=== PATIENT | female | born 1935 | race African-American/Black ===

== ENCOUNTER 2019-02-22 04:25 | Inpatient (IN) | payer MEDICARE, MEDICAID ==
[2019-02-22] VITALS (8 sets, daily range): BP systolic 137–192; BP diastolic 51–132
[~2019-02-22] VITALS: Ht 152.4 cm; Wt 83.0 kg
[2019-02-22] MEDS ORDERED: Acetaminophen 650 MG SUPP RECTAL ONE ×2 (04:30→04:44)
--- NOTE | 2019-02-22 04:36 | Emergency Room Report ---
History of Present Illness General Chief Complaint: Fever Source: Medical Record, EMS Present Illness HPI Disclaimer: Please note that this report is being documented using DRAGON technology. This can lead to erroneous entry secondary to incorrect interpretation by the dictating instrument. HPI: 83-year-old female with a history of dysphasia, nonverbal, diabetes, CHF, CKD presents for evaluation of hypoxia and shortness of breath. The patient presents from convalescent home, [facility], where she was reportedly staying for pneumonia. Unclear what antibiotic she was taking. According to documentation she was found hypoxic saturating 76% on room air and improved to 88% on nasal cannula. She was febrile with a temperature of 101.8. Patient is nonverbal and cannot provide any additional information. PMH: CKD, nonverbal, diabetes, CHF PSH: Unknown Allergies: Unknown Social Hx: Unknown Allergies: Coded Allergies: No Known Allergies (Unverified , 02/22/19) Nursing Documentation-PMH Hx Hypertension: Yes Hx Diabetes: Yes Hx Dialysis: No - CKD Review of Systems All Other Systems: negative except mentioned in HPI Physical Exam Vital Signs Date Time Temp Pulse Resp B/P (MAP) Pulse Ox O2 Delivery O2 Flow Rate FiO2 02/22/19 04:18 100.9 120 26 166/83 (110) 94 Room Air 2.0 General: Awake and alert, febrile HEENT: NC/AT. EOMI. Cardiovascular: Tachycardic. S1 and S2 normal. No murmur appreciated Resp: Tachypneic. Increased work of breathing. No cough, wheezing or crackles appreciated Abdomen: G-tube in place. No leakage. Abdomen is soft, nondistended. Nontender Skin: Intact. No abrasions, laceration or rash over the exposed skin MSK: Normal tone and bulk. Moving all extremities. No obvious deformity. No lower extremity edema Neuro: Awake and alert. Mentating appropriately. Procedures Critical Care Time Critical Care Time Total critical care time: Approximately 45 minutes Due to a high probability of clinically significant, life threatening deterioration, the patient required the highest level of preparedness to intervene emergently and I personally spent this critical care time directly and personally managing the patient. This critical care time included obtaining a history, examining the patient, pulse oximetry, ordering and reviewing studies , ordering treatments, evaluating response to treatment and updating management plan as needed, frequent reassessment and discussion with other providers as well as arranging for ultimate disposition. This critical to care time was performed to assess and manage the high probability of life-threatening deterioration that could result in multiorgan failure. This critical care time is separate from the separately billable procedures and treating other patients. Medical Decision Making ER Course 83-year-old female presents from her convalescent home where she was staying for pneumonia presents for evaluation of hypoxia and increased work of breathing. Differential includes was not limited to viral syndrome, pneumonia, influenza, pneumothorax, ACS, CHF. She is tachypneic and tachycardic with increased work of breathing. Will start BiPAP. Will start broad metabolic infectious work-up. Treat empirically with antibiotics and antipyretics. Gentle IV hydration. Saturating well on nasal cannula at this time. She is febrile. Will require admission. Laboratory Tests Test 02/22/19 04:20 02/22/19 05:00 White Blood Count 20.1 K/UL (4.8-10.8) H Red Blood Count 4.49 M/UL (4.20-5.40) Hemoglobin 14.5 G/DL (12.0-16.0) Hematocrit 44.6 % (37.0-47.0) Mean Corpuscular Volume 99 FL (80-99) Mean Corpuscular Hemoglobin 32.4 PG (27.0-31.0) H Mean Corpuscular Hemoglobin Concent 32.6 G/DL (32.0-36.0) Red Cell Distribution Width 13.9 % (11.6-14.8) Platelet Count 166 K/UL (150-450) Mean Platelet Volume 10.0 FL (6.5-10.1) Neutrophils (%) (Auto) % (45.0-75.0) Lymphocytes (%) (Auto) % (20.0-45.0) Monocytes (%) (Auto) % (1.0-10.0) Eosinophils (%) (Auto) % (0.0-3.0) Basophils (%) (Auto) % (0.0-2.0) Differential Total Cells Counted 100 Neutrophils % (Manual) 88 % (45-75) H Lymphocytes % (Manual) 6 % (20-45) L Monocytes % (Manual) 6 % (1-10) Eosinophils % (Manual) 0 % (0-3) Basophils % (Manual) 0 % (0-2) Band Neutrophils 0 % (0-8) Platelet Estimate Adequate Platelet Morphology Normal Sodium Level 135 MMOL/L (136-145) L Potassium Level 4.5 MMOL/L (3.5-5.1) Chloride Level 103 MMOL/L (98-107) Carbon Dioxide Level 28 MMOL/L (21-32) Anion Gap 4 mmol/L (5-15) L Blood Urea Nitrogen 29 mg/dL (7-18) H Creatinine 1.2 MG/DL (0.55-1.30) Estimate Glomerular Filtration Rate mL/min (>60) Glucose Level 178 MG/DL (74-106) H Lactic Acid Level 1.80 mmol/L (0.4-2.0) Calcium Level 10.3 MG/DL (8.5-10.1) H Total Bilirubin 2.0 MG/DL (0.2-1.0) H Direct Bilirubin 0.3 MG/DL (0.0-0.3) Aspartate Amino Transferase (AST) 42 U/L (15-37) H Alanine Aminotransferase (ALT) 38 U/L (12-78) Alkaline Phosphatase 140 U/L (46-116) H Troponin I 0.132 ng/mL (0.000-0.056) Pro-B-Type Natriuretic Peptide 742 pg/mL (0-125) H Total Protein 8.4 G/DL (6.4-8.2) H Albumin 2.7 G/DL (3.4-5.0) L Globulin 5.7 g/dL Albumin/Globulin Ratio 0.5 (1.0-2.7) L Arterial Blood pH 7.429 (7.350-7.450) Arterial Blood Partial Pressure CO2 41.8 mmHg (35.0-45.0) Arterial Blood Partial Pressure O2 63.2 mmHg (75.0-100.0) L Arterial Blood HCO3 27.1 mmol/L (22.0-26.0) H Arterial Blood Oxygen Saturation 92.5 % (95-100) L Arterial Blood Base Excess 2.5 (-2-2) H Melecio Test Positive Microbiology Date/Time Source Procedure Growth Status 02/22/19 05:00 Nasal Nares - Final Complete 02/22/19 05:00 Nasal Nares - Final Complete EKG Diagnostic Results EKG Time: 04:34 Rate: tachycardiac Other Impression Sinus tachycardia, left axis deviation. No ST segment changes. Normal intervals. Rhythm Strip Diag. Results Rhythm Strip Time: 04:34 EP Interpretation: yes Rate: 110s Rhythm: no PVC's, no ectopy Chest X-Ray Diagnostic Results Chest X-Ray Diagnostic Results : Chest X-Ray Ordered: Yes # of Views/Limited/Complete: 1 View Indication: Shortness of Breath Interpretation: no effusion, no pneumothorax, other - Atelectasis versus consolidation right lower lobe. Impression: Other - Atelectasis versus consolidation Electronically Signed by: Electronically signed by Dr. Wiliam Dean Reevaluation Time: 05:57 Last Vital Signs Date Time Temp Pulse Resp B/P (MAP) Pulse Ox O2 Delivery O2 Flow Rate FiO2 02/22/19 04:18 100.9 120 26 166/83 (110) 94 Room Air 2.0 Reevaluation Impression Patient tolerating BiPAP well. Heart rate improving. Saturating 100%. Respiratory effort improved. Labs show white count of 20,000 with a shift of 88% . Blood gas shows hypoxia with a PCO2 P OT PO2 of 63 and a saturation 92.5% chemistry shows an elevated BUN, elevated troponin 0.132, normal lactate, abnormal bilirubin and elevated BN peptide at 742. No obvious effusions or significant congestion on chest x-ray but there is questionable consolidation versus atelectasis. Patient was treated with Levaquin on arrival. Rectal Tylenol was given for fever. Flu swabs are negative. Will admit to stepdown unit. Disposition: ADMITTED INPATIENT Condition: Serious Wiliam Dean MD Feb 22, 2019 04:36
[2019-02-22 05:04] LABS: HEMATOCRIT 44.6 % (37.0-47.0); HEMOGLOBIN 14.5 G/DL (12.0-16.0); MEAN CORPUSCULAR VOLUME 99 FL (80-99); PLATELET COUNT 166 K/UL (150-450); RED BLOOD COUNT 4.49 M/UL (4.20-5.40); RED CELL DISTRIBUTION WIDTH 13.9 % (11.6-14.8); WHITE BLOOD COUNT 20.1 K/UL (4.8-10.8)
[2019-02-22 05:18] LABS: ANION GAP 4 mmol/L (5-15); BLOOD UREA NITROGEN 29 mg/dL (7-18); CALCIUM 10.3 MG/DL (8.5-10.1); CARBON DIOXIDE 28 MMOL/L (21-32); CHLORIDE 103 MMOL/L (98-107); CREATININE 1.2 MG/DL (0.55-1.30); POTASSIUM 4.5 MMOL/L (3.5-5.1); SODIUM 135 MMOL/L (136-145)
[2019-02-22] MEDS ORDERED: NORCO 5-325 TA1 EACH ORAL (05:26)
[2019-02-22] MEDS ORDERED: ELIQUIS5 MG PO (05:26)
[2019-02-22] MEDS ORDERED: SIMETHICON40 MG/0.1 GT (05:26)
[2019-02-22] MEDS ORDERED: FLEET ENEMA133 ML RECTAL (05:26)
[2019-02-22] MEDS ORDERED: DUONEB 0.5-3(2.53 ML HHN (05:26)
[2019-02-22] MEDS ORDERED: CATAPRES0.1 MG ORAL (05:26)
[2019-02-22] MEDS ORDERED: BISACODYL10 M1 RC (05:26)
[2019-02-22] MEDS ORDERED: 8 HOUR650 MG ORAL (05:26)
[2019-02-22 05:34] LABS: ALANINE AMINOTRANSFERASE 38 U/L (12-78); ALBUMIN 2.7 G/DL (3.4-5.0); ALBUMIN/GLOBULIN RATIO 0.5 (1.0-2.7); ALKALINE PHOSPHATASE 140 U/L (46-116); ASPARTATE AMINO TRANSFERASE 42 U/L (15-37)
[2019-02-22 05:37] LABS: BILIRUBIN,DIRECT 0.3 MG/DL (0.0-0.3)
[2019-02-22] MEDS ORDERED: Albuterol/Ipratropium 3ml neb ONE ×3 (05:38→05:48)
[2019-02-22] MEDS: Albuterol/Ipratropium 3ml neb HHN SCH ×3 (05:42→05:49)
[2019-02-22 06:19] LABS: APPEARANCE,URINE CLEAR; BILIRUBIN, URINE NEGATIVE (NEGATIVE); GLUCOSE, URINE (UA) NEGATIVE (NEGATIVE); KETONES,URINE NEGATIVE (NEGATIVE); LEUKOCYTE ESTERASE ,URINE NEGATIVE (NEGATIVE); NITRITE,URINE NEGATIVE (NEGATIVE); PH,URINE 5 (4.5-8.0); PROTEIN,URINE 3+ (NEGATIVE); UROBILINOGEN,URINE 1 MG/DL (0.0-1.0)
[2019-02-22 06:29] LABS: COLOR,URINE YELLOW
--- NOTE | 2019-02-22 06:50 | Diagnostic Imaging Report ---
Indication: Shortness of breath Technique: One view of the chest Comparison: none Findings: There is elevation of the left hemidiaphragm. There is bilateral interstitial disease and central bronchial wall thickening. Heart size is normal. No focal airspace consolidation. No definite effusions Impression: Acuity indeterminate bilateral interstitial disease and central bronchial wall thickening. Correlate with clinical findings
[2019-02-22] MEDS ORDERED: Nitroglycerin Subl 0.4mg tab SL PRN ×2 (10:00→21:00)
[2019-02-22] MEDS ORDERED: Morphine Sulfate 2mg/ml Inj(IV/IM USE ONLY) IVP PRN ×2 (10:00→21:00)
[2019-02-22] MEDS ORDERED: Albuterol/Ipratropium 3ml neb HHN PRN (10:00)
[2019-02-22] MEDS ORDERED: Miralax 17gm pkt ORAL PRN ×2 (10:00→21:00)
--- NOTE | 2019-02-22 10:11 | History and Physical ---
History of Present Illness General Date patient seen: Feb 22, 2019 Reason for Hospitalization: Fever Present Illness HPI 83-year-old female with a hx of diabetes, CHF, dementia, Gtube, bed bound presented for evaluation of hypoxia and shortness of breath. She was found hypoxic saturating 76% on room air and improved to 88% on nasal cannula. She was febrile with a temperature of 101.8. Patient is nonverbal and cannot provide any additional information. Her BP was high around 160, she was put on BIPAP and transferred to ICU. Allergies: Coded Allergies: No Known Allergies (Unverified , 02/22/19) Medication History Scheduled Acetaminophen (8 Hour), 650 MG ORAL Q8H, (Reported) Clonidine Hcl* (Catapres*), 0.1 MG ORAL EVERY 6 HOURS, (Reported) Na Phos,M-B/Na Phos,Di-Ba* (Fleet Enema*), 133 ML RECTAL DAILY, (Reported) Scheduled PRN Hydrocodone Bit/Acetaminophen 5-325* ([place] 5-325*), 1 TAB ORAL Q4H PRN for For Pain, (Reported) Miscellaneous Medications Apixaban (Eliquis), 5 MG PO, (Reported) Bisacodyl (Bisacodyl), 10 MG RC, (Reported) Ipratropium/Albuterol Sulfate (DuoNeb 0.5-3(2.5)mg/3ml), 3 ML HHN, (Reported) Simethicone (Gas Relief), 200 MG GT, (Reported) Patient History Healthcare decision maker Resuscitation status Advanced Directive on File Past Medical/Surgical History Past Medical/Surgical History: (1) CAD (coronary artery disease) (2) Dementia with behavioral disturbance (3) Parkinson disease (4) Diabetes mellitus (5) Feeding by G-tube Review of Systems All Other Systems: negative except mentioned in HPI Physical Exam General Appearance: WD/WN, no apparent distress Lines, tubes and drains: peripheral HEENT: normocephalic, atraumatic Neck: non-tender, normal alignment Respiratory/Chest: chest wall non-tender, lungs clear Breasts: no masses Cardiovascular/Chest: normal peripheral pulses Abdomen: normal bowel sounds, non tender Genitourinary/Rectal: normal genital exam, normal rectal exam Extremities: normal range of motion, non-tender Skin Exam: normal pigmentation Neurologic: box finisher II-XII grossly normal Lymphatic: anterior cervical Last 24 Hour Vital Signs Date Time Temp Pulse Resp B/P (MAP) Pulse Ox O2 Delivery O2 Flow Rate FiO2 02/22/19 07:55 101.0 106 29 167/67 97 Bi-pap 2.0 40 02/22/19 07:45 101.0 106 29 167/67 97 Bi-pap 40 02/22/19 06:30 102.4 108 25 167/67 100 2.0 40 02/22/19 05:50 101 25 100 Bi-Pap 40 103 27 100 02/22/19 05:45 103 26 100 Bi-Pap 40 102 26 100 02/22/19 05:44 102.4 02/22/19 05:42 115 32 99 Bi-Pap 40 111 37 97 02/22/19 05:08 115 38 98 Facial 30 02/22/19 05:00 102.4 125 20 180/132 99 Bi-pap 2.0 40 02/22/19 04:45 120 26 Room Air 2.0 02/22/19 04:18 100.9 120 26 166/83 (110) 94 Room Air 2.0 Laboratory Tests Test 02/22/19 04:20 02/22/19 05:00 02/22/19 05:50 02/22/19 06:30 White Blood Count 20.1 K/UL (4.8-10.8) H Red Blood Count 4.49 M/UL (4.20-5.40) Hemoglobin 14.5 G/DL (12.0-16.0) Hematocrit 44.6 % (37.0-47.0) Mean Corpuscular Volume 99 FL (80-99) Mean Corpuscular Hemoglobin 32.4 PG (27.0-31.0) H Mean Corpuscular Hemoglobin Concent 32.6 G/DL (32.0-36.0) Red Cell Distribution Width 13.9 % (11.6-14.8) Platelet Count 166 K/UL (150-450) Mean Platelet Volume 10.0 FL (6.5-10.1) Neutrophils (%) (Auto) % (45.0-75.0) Lymphocytes (%) (Auto) % (20.0-45.0) Monocytes (%) (Auto) % (1.0-10.0) Eosinophils (%) (Auto) % (0.0-3.0) Basophils (%) (Auto) % (0.0-2.0) Differential Total Cells Counted 100 Neutrophils % (Manual) 88 % (45-75) H Lymphocytes % (Manual) 6 % (20-45) L Monocytes % (Manual) 6 % (1-10) Eosinophils % (Manual) 0 % (0-3) Basophils % (Manual) 0 % (0-2) Band Neutrophils 0 % (0-8) Platelet Estimate Adequate Platelet Morphology Normal Sodium Level 135 MMOL/L (136-145) L Potassium Level 4.5 MMOL/L (3.5-5.1) Chloride Level 103 MMOL/L (98-107) Carbon Dioxide Level 28 MMOL/L (21-32) Anion Gap 4 mmol/L (5-15) L Blood Urea Nitrogen 29 mg/dL (7-18) H Creatinine 1.2 MG/DL (0.55-1.30) Estimat Glomerular Filtration Rate mL/min (>60) Glucose Level 178 MG/DL (74-106) H Lactic Acid Level 1.80 mmol/L (0.4-2.0) Calcium Level 10.3 MG/DL (8.5-10.1) H Total Bilirubin 2.0 MG/DL (0.2-1.0) H Direct Bilirubin 0.3 MG/DL (0.0-0.3) Aspartate Amino Transf (AST/SGOT) 42 U/L (15-37) H Alanine Aminotransferase (ALT/SGPT) 38 U/L (12-78) Alkaline Phosphatase 140 U/L (46-116) H Troponin I 0.132 ng/mL (0.000-0.056) 0.168 ng/mL (0.000-0.056) Pro-B-Type Natriuretic Peptide 742 pg/mL (0-125) H Total Protein 8.4 G/DL (6.4-8.2) H Albumin 2.7 G/DL (3.4-5.0) L Globulin 5.7 g/dL Albumin/Globulin Ratio 0.5 (1.0-2.7) L Arterial Blood pH 7.429 (7.350-7.450) Arterial Blood Partial Pressure CO2 41.8 mmHg (35.0-45.0) Arterial Blood Partial Pressure O2 63.2 mmHg (75.0-100.0) L Arterial Blood HCO3 27.1 mmol/L (22.0-26.0) H Arterial Blood Oxygen Saturation 92.5 % (95-100) L Arterial Blood Base Excess 2.5 (-2-2) H Melecio Test Positive Urine Color Yellow Urine Appearance Clear Urine pH 5 (4.5-8.0) Urine Specific [place] 1.020 (1.005-1.035) Urine Protein 3+ (NEGATIVE) H Urine Glucose (UA) Negative (NEGATIVE) Urine Ketones Negative (NEGATIVE) Urine Blood 4+ (NEGATIVE) H Urine Nitrite Negative (NEGATIVE) Urine Bilirubin Negative (NEGATIVE) Urine Urobilinogen 1 MG/DL (0.0-1.0) H Urine Leukocyte Esterase Negative (NEGATIVE) Urine RBC 40-60 /HPF (0 - 2) H Urine WBC 2-4 /HPF (0 - 2) Urine Squamous Epithelial Cells Few /LPF (NONE/OCC) Urine Bacteria Few /HPF (NONE) Microbiology Date/Time Source Procedure Growth Status 02/22/19 05:00 Nasal Nares - Final Complete 02/22/19 05:00 Nasal Nares - Final Complete Height (Feet): 5 Height (Inches): 3.00 Weight (Pounds): 150 Medications Current Medications Medications (Trade) Dose Ordered Sig/Steve Route PRN Reason Start Time Stop Time Status Last Admin Dose Admin Acetaminophen (Tylenol) 650 mg Q4H PRN ORAL fever 02/22/19 10:00 03/24/19 09:59 UNV Albuterol/ Ipratropium (Albuterol/ Ipratropium) 3 ml EVERY 4 HOURS PRN HHN Shortness of Breath 02/22/19 10:00 02/27/19 09:59 UNV Albuterol/ Ipratropium (Albuterol/ Ipratropium) 3 ml Q15M HHN 02/22/19 05:00 02/27/19 04:59 02/22/19 05:49 Cefepime HCl 2 gm/ Dextrose 110 ml @ 220 mls/hr EVERY 12 HOURS IV 02/22/19 21:00 03/01/19 20:59 UNV Heparin Sodium (Porcine) (Heparin 5000 units/ml) 5,000 units EVERY 12 HOURS SUBQ 02/22/19 21:00 03/24/19 20:59 UNV Morphine Sulfate (Morphine Sulfate) 2 mg EVERY 4 HOURS PRN IVP Moderate Pain (Pain Scale 4-6) 02/22/19 10:00 03/01/19 09:59 UNV Nitroglycerin (Ntg) 0.4 mg Every 5 Minutes PRN SL Prn Chest Pain 02/22/19 10:00 03/24/19 09:59 UNV Ondansetron HCl (Zofran) 4 mg Q6H PRN IVP Nausea & Vomiting 02/22/19 10:00 03/24/19 09:59 UNV Polyethylene Glycol (Miralax) 17 gm DAILYPRN PRN ORAL Constipation 02/22/19 10:00 03/24/19 09:59 UNV Temazepam (Restoril) 15 mg HSPRN PRN ORAL Insomnia 02/22/19 10:00 03/01/19 09:59 UNV Vancomycin HCl 1 gm/Dextrose 275 ml @ 183.3 mls/ hr Q24H IV 02/23/19 00:30 02/28/19 00:29 UNV Assessment/Plan Problem List: (1) NSTEMI (non-ST elevated myocardial infarction) ICD Codes: I21.4 - Non-ST elevation (NSTEMI) myocardial infarction SNOMED: 90933368 (2) Nosocomial pneumonia ICD Codes: J18.9 - Pneumonia, unspecified organism; Y95 - Nosocomial condition SNOMED: 675037806 (3) Sepsis ICD Codes: A41.9 - Sepsis, unspecified organism SNOMED: 93679142 (4) Fever ICD Codes: R50.9 - Fever, unspecified SNOMED: 346292476 (5) Hypoxia ICD Codes: R09.02 - Hypoxemia SNOMED: 478944198 (6) Dementia with behavioral disturbance ICD Codes: F03.91 - Unspecified dementia with behavioral disturbance SNOMED: 0610727488905 (7) Feeding by G-tube ICD Codes: Z93.1 - Gastrostomy status SNOMED: 141744199, 305075570, 293988720 (8) Diabetes mellitus ICD Codes: E11.9 - Type 2 diabetes mellitus without complications SNOMED: 41373433 (9) CAD (coronary artery disease) ICD Codes: I25.10 - Atherosclerotic heart disease of [place] coronary artery without angina pectoris SNOMED: 12825519 (10) Parkinson disease ICD Codes: G20 - Parkinson's disease SNOMED: 33475810 Assessment/Plan: check sputum iv abx titrate fio2 to sat of 92% echo venous doppler of [place] ID evaluation aspiration precaution check Troponin in am dvt prophylaxis Davion Cuello MD Feb 22, 2019 10:11
[2019-02-22] MEDS ORDERED: Acetaminophen 650mg/20.3ml NG PRN (12:00)
[2019-02-22] MEDS: Vancomycin 1 GM in D5W 275 ML IVPB SCH (12:14)
[2019-02-22] MEDS: NovoLOG Insulin Flexpen SUBQ SCH ×3 (14:40→20:50)
[2019-02-22] MEDS ORDERED: Labetalol 5mg/ml 20ml vial IV PRN (15:45)
--- NOTE | 2019-02-22 19:04 | Consultation ---
Consult Note Assessment/Plan Cardiology for Dr. Majano Full noted dictated #[id number] Irma Moody MD Feb 22, 2019 19:04
[2019-02-22] MEDS: Cefepime HCl 1 GM in D5W 110 ML IVPB SCH (20:50)
[2019-02-22] MEDS: Eliquis 5mg tablet ORAL SCH (20:50)
[2019-02-22] MEDS: Acetaminophen 650mg/20.3ml NG PRN (20:58)
[2019-02-22] MEDS ORDERED: Heparin 5000 units/ml inj SUBQ SCH (21:00)
[2019-02-23] VITALS (23 sets, daily range): BP systolic 116–174; BP diastolic 46–95
[2019-02-23] MEDS: Acetaminophen 650mg/20.3ml NG PRN (04:25)
[2019-02-23 05:47] LABS: HEMATOCRIT 35.2 % (37.0-47.0); HEMOGLOBIN 11.9 G/DL (12.0-16.0); MEAN CORPUSCULAR VOLUME 99 FL (80-99); PLATELET COUNT 146 K/UL (150-450); RED BLOOD COUNT 3.56 M/UL (4.20-5.40); RED CELL DISTRIBUTION WIDTH 13.7 % (11.6-14.8); WHITE BLOOD COUNT 11.3 K/UL (4.8-10.8)
[2019-02-23] MEDS: NovoLOG Insulin Flexpen SUBQ SCH ×3 (05:59→18:06)
[2019-02-23 06:23] LABS: ALANINE AMINOTRANSFERASE 34 U/L (12-78); ALBUMIN 2.3 G/DL (3.4-5.0); ALBUMIN/GLOBULIN RATIO 0.5 (1.0-2.7); ALKALINE PHOSPHATASE 120 U/L (46-116); ANION GAP 7 mmol/L (5-15); ASPARTATE AMINO TRANSFERASE 38 U/L (15-37); BILIRUBIN,TOTAL 1.4 MG/DL (0.2-1.0); BLOOD UREA NITROGEN 26 mg/dL (7-18); CALCIUM 9.3 MG/DL (8.5-10.1); CARBON DIOXIDE 24 MMOL/L (21-32); CHLORIDE 107 MMOL/L (98-107); POTASSIUM 3.5 MMOL/L (3.5-5.1); SODIUM 138 MMOL/L (136-145)
[2019-02-23 06:25] LABS: BILIRUBIN,DIRECT 0.4 MG/DL (0.0-0.3)
--- NOTE | 2019-02-23 08:47 | Pulmonolgy Critical Care Note ---
Critical Care - Asmt/Plan Problems: (1) Acute respiratory failure (2) Nosocomial pneumonia (3) Sepsis (4) Parkinson disease (5) Feeding by G-tube (6) Diabetes mellitus (7) NSTEMI (non-ST elevated myocardial infarction) (8) Dementia with behavioral disturbance (9) CAD (coronary artery disease) Respiratory: monitor respiratory rate, adjust FIO2, CXR, other - taper off BIPAP Cardiac: continue to monitor HR/BP Renal: F/U I&O, check electrolytes Infectious Disease: check cultures, continue antibiotics Gastrointestinal: continue feedings/current rate Endocrine: monitor blood sugar Hematologic: monitor H/H Neurologic: PRN Ativan Notes Reviewed: makeup sales advisor, renal Discussed with: consultants, case manager specialistcontinuous improvement manager - Objective Last 24 Hour Vital Signs Date Time Temp Pulse Resp B/P (MAP) Pulse Ox O2 Delivery O2 Flow Rate FiO2 02/23/19 07:32 100 Bi-Pap 35 02/23/19 07:32 91 24 100 Full Face 35 02/23/19 07:00 85 24 166/64 (98) 100 02/23/19 06:00 82 32 131/56 (81) 99 02/23/19 05:08 86 24 98 Full Face 35 02/23/19 05:00 99 24 116/48 (70) 98 02/23/19 04:55 99.9 02/23/19 04:00 101.6 96 24 163/80 (107) 99 02/23/19 04:00 Bi-pap 02/23/19 04:00 35 02/23/19 03:45 98 36 100 Full Face 35 02/23/19 03:07 112 02/23/19 03:00 116 40 172/69 (103) 100 02/23/19 02:13 174/67 02/23/19 02:00 99 34 174/67 (102) 100 02/23/19 01:05 89 37 100 Full Face 35 02/23/19 01:00 97 30 155/86 (109) 99 02/23/19 00:00 98.9 95 24 150/66 (94) 100 02/23/19 00:00 Bi-pap 02/22/19 23:53 95 32 98 Full Face 35 02/22/19 23:31 96 02/22/19 23:00 96 27 172/64 (100) 100 02/22/19 22:00 90 20 137/51 (79) 100 02/22/19 21:00 99 27 192/61 (104) 99 02/22/19 20:59 177/77 02/22/19 20:40 106 38 100 Full Face 35 02/22/19 20:00 40 02/22/19 20:00 Bi-pap 02/22/19 20:00 100.6 104 33 177/77 (110) 99 02/22/19 19:27 102 02/22/19 19:00 102 37 100 Full Face 35 02/22/19 19:00 103 33 152/63 (92) 100 02/22/19 19:00 100 Bi-Pap 35 02/22/19 17:21 95 27 100 Full Face 40 02/22/19 16:15 92 185/64 02/22/19 16:00 102 02/22/19 16:00 Bi-pap 02/22/19 16:00 40 02/22/19 14:59 107 35 100 Facial 40 02/22/19 13:18 81 26 100 Facial 40 02/22/19 13:00 179/72 02/22/19 12:00 40 02/22/19 12:00 Bi-pap 02/22/19 12:00 103 02/22/19 09:05 Simple Mask 12.0 Status: obtunded Condition: critical Lungs: rales, rhonchi Heart: HR/BP stable Abdomen: soft, non-tender Extremities: no C/C/E Micro: Microbiology Date/Time Source Procedure Growth Status 02/22/19 04:35 Blood Blood Culture - Preliminary NO GROWTH AFTER 24 HOURS Resulted 02/22/19 04:20 Blood Blood Culture - Preliminary NO GROWTH AFTER 24 HOURS Resulted 02/22/19 05:00 Nasal Nares - Final Complete 02/22/19 05:00 Nasal Nares - Final Complete Accucheck: 107 Critical Care - Subjective ROS Limited/Unobtainable: Yes Interval Events: still off BIPAP FI02: 35 Vent Support Mode: BiLevel Sputum Amount: None PEEP: 5.0 Tube Feeding Amount: 30 I&O: Intake and Output 02/22/19 02/23/19 19:00 07:00 Intake Total 961.6 ml 1078.75 ml Output Total 320 ml 470 ml Balance 641.6 ml 608.75 ml Intake IV Total 891.6 ml 778.75 ml Tube Feeding 70 ml 300 ml Output Urine Total 320 ml 470 ml Labs: Laboratory Tests Test 02/23/19 05:06 White Blood Count 11.3 K/UL (4.8-10.8) H Red Blood Count 3.56 M/UL (4.20-5.40) L Hemoglobin 11.9 G/DL (12.0-16.0) L Hematocrit 35.2 % (37.0-47.0) L Mean Corpuscular Volume 99 FL (80-99) Mean Corpuscular Hemoglobin 33.5 PG (27.0-31.0) H Mean Corpuscular Hemoglobin Concent 33.9 G/DL (32.0-36.0) Red Cell Distribution Width 13.7 % (11.6-14.8) Platelet Count 146 K/UL (150-450) L Mean Platelet Volume 9.9 FL (6.5-10.1) Neutrophils (%) (Auto) % (45.0-75.0) Lymphocytes (%) (Auto) % (20.0-45.0) Monocytes (%) (Auto) % (1.0-10.0) Eosinophils (%) (Auto) % (0.0-3.0) Basophils (%) (Auto) % (0.0-2.0) Neutrophils % (Manual) Pending Lymphocytes % (Manual) Pending Platelet Estimate Pending Platelet Morphology Pending Sodium Level 138 MMOL/L (136-145) Potassium Level 3.5 MMOL/L (3.5-5.1) Chloride Level 107 MMOL/L (98-107) Carbon Dioxide Level 24 MMOL/L (21-32) Anion Gap 7 mmol/L (5-15) Blood Urea Nitrogen 26 mg/dL (7-18) H Creatinine 1.0 MG/DL (0.55-1.30) Estimat Glomerular Filtration Rate mL/min (>60) Glucose Level 121 MG/DL (74-106) H Calcium Level 9.3 MG/DL (8.5-10.1) Total Bilirubin 1.4 MG/DL (0.2-1.0) H Direct Bilirubin 0.4 MG/DL (0.0-0.3) H Aspartate Amino Transf (AST/SGOT) 38 U/L (15-37) H Alanine Aminotransferase (ALT/SGPT) 34 U/L (12-78) Alkaline Phosphatase 120 U/L (46-116) H Troponin I 0.172 ng/mL (0.000-0.056) Total Protein 7.1 G/DL (6.4-8.2) Albumin 2.3 G/DL (3.4-5.0) L Globulin 4.8 g/dL Albumin/Globulin Ratio 0.5 (1.0-2.7) L Davion Cuello MD Feb 23, 2019 08:47
[2019-02-23] MEDS ORDERED: Pantoprazole Inj IVP SCH (09:00)
[2019-02-23] MEDS: Cefepime HCl 1 GM in D5W 110 ML IVPB SCH ×2 (09:34→20:13)
[2019-02-23] MEDS: Eliquis 5mg tablet ORAL SCH ×2 (09:35→20:13)
[2019-02-23] MEDS: Pantoprazole Inj IVP SCH (10:21)
[2019-02-23 15:00] LABS: APPEARANCE,URINE CLEAR; BILIRUBIN, URINE NEGATIVE (NEGATIVE); GLUCOSE, URINE (UA) NEGATIVE (NEGATIVE); KETONES,URINE 1+ (NEGATIVE); LEUKOCYTE ESTERASE ,URINE NEGATIVE (NEGATIVE); NITRITE,URINE NEGATIVE (NEGATIVE); PH,URINE 5 (4.5-8.0); PROTEIN,URINE 3+ (NEGATIVE); UROBILINOGEN,URINE 1 MG/DL (0.0-1.0)
--- NOTE | 2019-02-23 15:02 | Cardiology Progress Note ---
Assessment/Plan Assessment/Plan respiratory failure, off Bipap, on simple o2 mask now ans saturation 100%, her respirations mildly labored she is covered with abx and her WBC is much better today HTN improved, on oral abx through g -tube, noted echocardiogram, I doubt that her respiratory distress is due to pulmonary edema most likely pneumonia, Subjective Subjective the patient is resting in bed, she is very lethargic, upon arousal, lifts her head but does not follow instructions. Objective Last 24 Hour Vital Signs Date Time Temp Pulse Resp B/P (MAP) Pulse Ox O2 Delivery O2 Flow Rate FiO2 02/23/19 14:00 87 26 157/76 (103) 100 02/23/19 13:00 81 19 145/61 (89) 100 02/23/19 12:00 12.0 50 02/23/19 12:00 98.3 96 29 154/81 (105) 100 02/23/19 12:00 Bi-pap 02/23/19 10:00 103 30 149/46 (80) 100 02/23/19 10:00 12.0 50 02/23/19 09:35 90 132/62 02/23/19 09:00 102 31 157/65 (95) 100 02/23/19 08:50 90 25 100 Full Face 35 02/23/19 08:00 Bi-pap 02/23/19 08:00 35 02/23/19 08:00 98.9 93 26 132/62 (85) 100 02/23/19 07:32 100 Bi-Pap 35 02/23/19 07:32 91 24 100 Full Face 35 02/23/19 07:00 85 24 166/64 (98) 100 02/23/19 06:00 82 32 131/56 (81) 99 02/23/19 05:08 86 24 98 Full Face 35 02/23/19 05:00 99 24 116/48 (70) 98 02/23/19 04:55 99.9 02/23/19 04:00 101.6 96 24 163/80 (107) 99 02/23/19 04:00 Bi-pap 02/23/19 04:00 35 02/23/19 03:45 98 36 100 Full Face 35 02/23/19 03:07 112 02/23/19 03:00 116 40 172/69 (103) 100 02/23/19 02:13 174/67 02/23/19 02:00 99 34 174/67 (102) 100 02/23/19 01:05 89 37 100 Full Face 35 02/23/19 01:00 97 30 155/86 (109) 99 02/23/19 00:00 98.9 95 24 150/66 (94) 100 02/23/19 00:00 Bi-pap 02/22/19 23:53 95 32 98 Full Face 35 02/22/19 23:31 96 02/22/19 23:00 96 27 172/64 (100) 100 02/22/19 22:00 90 20 137/51 (79) 100 02/22/19 21:00 99 27 192/61 (104) 99 02/22/19 20:59 177/77 02/22/19 20:40 106 38 100 Full Face 35 02/22/19 20:00 40 02/22/19 20:00 Bi-pap 02/22/19 20:00 100.6 104 33 177/77 (110) 99 02/22/19 19:27 102 02/22/19 19:00 102 37 100 Full Face 35 02/22/19 19:00 103 33 152/63 (92) 100 02/22/19 19:00 100 Bi-Pap 35 02/22/19 17:21 95 27 100 Full Face 40 02/22/19 16:15 92 185/64 02/22/19 16:00 102 02/22/19 16:00 Bi-pap 02/22/19 16:00 40 02/22/19 14:59 107 35 100 Facial 40 General Appearance: moderate distress, lethargic EENT: PERRL/EOMI Neck: no JVD Rhythm: NSR - ` Cardiovascular: tachycardia Respiratory/Chest: rhonchi - bilaterally, expiratory wheezing - also crackles posterioirly Abdomen: soft, other - g tube Extremities: no swelling, normal capillary refill Pulses: decreased: DP (L) Neurologic: unresponsiveness Intake and Output 02/22/19 02/23/19 19:00 07:00 Intake Total 961.6 ml 1078.75 ml Output Total 320 ml 470 ml Balance 641.6 ml 608.75 ml IV Total 891.6 ml 778.75 ml Tube Feeding 70 ml 300 ml Output Urine Total 320 ml 470 ml Laboratory Tests Test 02/23/19 05:06 White Blood Count 11.3 K/UL (4.8-10.8) H Red Blood Count 3.56 M/UL (4.20-5.40) L Hemoglobin 11.9 G/DL (12.0-16.0) L Hematocrit 35.2 % (37.0-47.0) L Mean Corpuscular Volume 99 FL (80-99) Mean Corpuscular Hemoglobin 33.5 PG (27.0-31.0) H Mean Corpuscular Hemoglobin Concent 33.9 G/DL (32.0-36.0) Red Cell Distribution Width 13.7 % (11.6-14.8) Platelet Count 146 K/UL (150-450) L Mean Platelet Volume 9.9 FL (6.5-10.1) Neutrophils (%) (Auto) % (45.0-75.0) Lymphocytes (%) (Auto) % (20.0-45.0) Monocytes (%) (Auto) % (1.0-10.0) Eosinophils (%) (Auto) % (0.0-3.0) Basophils (%) (Auto) % (0.0-2.0) Differential Total Cells Counted 100 Neutrophils % (Manual) 86 % (45-75) H Lymphocytes % (Manual) 6 % (20-45) L Monocytes % (Manual) 7 % (1-10) Eosinophils % (Manual) 1 % (0-3) Basophils % (Manual) 0 % (0-2) Band Neutrophils 0 % (0-8) Platelet Estimate Decreased L Platelet Morphology Normal Red Blood Cell Morphology Normal Sodium Level 138 MMOL/L (136-145) Potassium Level 3.5 MMOL/L (3.5-5.1) Chloride Level 107 MMOL/L (98-107) Carbon Dioxide Level 24 MMOL/L (21-32) Anion Gap 7 mmol/L (5-15) Blood Urea Nitrogen 26 mg/dL (7-18) H Creatinine 1.0 MG/DL (0.55-1.30) Estimat Glomerular Filtration Rate mL/min (>60) Glucose Level 121 MG/DL (74-106) H Calcium Level 9.3 MG/DL (8.5-10.1) Total Bilirubin 1.4 MG/DL (0.2-1.0) H Direct Bilirubin 0.4 MG/DL (0.0-0.3) H Aspartate Amino Transf (AST/SGOT) 38 U/L (15-37) H Alanine Aminotransferase (ALT/SGPT) 34 U/L (12-78) Alkaline Phosphatase 120 U/L (46-116) H Troponin I 0.172 ng/mL (0.000-0.056) Total Protein 7.1 G/DL (6.4-8.2) Albumin 2.3 G/DL (3.4-5.0) L Globulin 4.8 g/dL Albumin/Globulin Ratio 0.5 (1.0-2.7) L Microbiology Date/Time Source Procedure Growth Status 02/22/19 04:35 Blood Blood Culture - Preliminary NO GROWTH AFTER 24 HOURS Resulted 02/22/19 04:20 Blood Blood Culture - Preliminary NO GROWTH AFTER 24 HOURS Resulted 02/22/19 05:00 Nasal Nares - Final Complete 02/22/19 05:00 Nasal Nares - Final Complete Annie Reardon MD Feb 23, 2019 15:02
--- NOTE | 2019-02-23 15:06 | Cardiology Progress Note ---
Assessment/Plan Assessment/Plan respiratory failure, off Bipap, on simple o2 mask now ans saturation 100%, her respirations mildly labored she is covered with abx and her WBC is much better today HTN improved, on oral abx through g -tube, noted echocardiogram, I doubt that her respiratory distress is due to pulmonary edema most likely pneumonia, Subjective Subjective ICU level of care one hour Objective Last 24 Hour Vital Signs Date Time Temp Pulse Resp B/P (MAP) Pulse Ox O2 Delivery O2 Flow Rate FiO2 02/23/19 14:00 87 26 157/76 (103) 100 02/23/19 13:00 81 19 145/61 (89) 100 02/23/19 12:00 12.0 50 02/23/19 12:00 98.3 96 29 154/81 (105) 100 02/23/19 12:00 Bi-pap 02/23/19 10:00 103 30 149/46 (80) 100 02/23/19 10:00 12.0 50 02/23/19 09:35 90 132/62 02/23/19 09:00 102 31 157/65 (95) 100 02/23/19 08:50 90 25 100 Full Face 35 02/23/19 08:00 Bi-pap 02/23/19 08:00 35 02/23/19 08:00 98.9 93 26 132/62 (85) 100 02/23/19 07:32 100 Bi-Pap 35 02/23/19 07:32 91 24 100 Full Face 35 02/23/19 07:00 85 24 166/64 (98) 100 02/23/19 06:00 82 32 131/56 (81) 99 02/23/19 05:08 86 24 98 Full Face 35 02/23/19 05:00 99 24 116/48 (70) 98 02/23/19 04:55 99.9 02/23/19 04:00 101.6 96 24 163/80 (107) 99 02/23/19 04:00 Bi-pap 02/23/19 04:00 35 02/23/19 03:45 98 36 100 Full Face 35 02/23/19 03:07 112 02/23/19 03:00 116 40 172/69 (103) 100 02/23/19 02:13 174/67 02/23/19 02:00 99 34 174/67 (102) 100 02/23/19 01:05 89 37 100 Full Face 35 02/23/19 01:00 97 30 155/86 (109) 99 02/23/19 00:00 98.9 95 24 150/66 (94) 100 02/23/19 00:00 Bi-pap 02/22/19 23:53 95 32 98 Full Face 35 02/22/19 23:31 96 02/22/19 23:00 96 27 172/64 (100) 100 02/22/19 22:00 90 20 137/51 (79) 100 02/22/19 21:00 99 27 192/61 (104) 99 02/22/19 20:59 177/77 02/22/19 20:40 106 38 100 Full Face 35 02/22/19 20:00 40 02/22/19 20:00 Bi-pap 02/22/19 20:00 100.6 104 33 177/77 (110) 99 02/22/19 19:27 102 02/22/19 19:00 102 37 100 Full Face 35 02/22/19 19:00 103 33 152/63 (92) 100 02/22/19 19:00 100 Bi-Pap 35 02/22/19 17:21 95 27 100 Full Face 40 02/22/19 16:15 92 185/64 02/22/19 16:00 102 02/22/19 16:00 Bi-pap 02/22/19 16:00 40 Intake and Output 02/22/19 02/23/19 19:00 07:00 Intake Total 961.6 ml 1078.75 ml Output Total 320 ml 470 ml Balance 641.6 ml 608.75 ml IV Total 891.6 ml 778.75 ml Tube Feeding 70 ml 300 ml Output Urine Total 320 ml 470 ml Laboratory Tests Test 02/23/19 05:06 02/23/19 14:30 White Blood Count 11.3 K/UL (4.8-10.8) H Red Blood Count 3.56 M/UL (4.20-5.40) L Hemoglobin 11.9 G/DL (12.0-16.0) L Hematocrit 35.2 % (37.0-47.0) L Mean Corpuscular Volume 99 FL (80-99) Mean Corpuscular Hemoglobin 33.5 PG (27.0-31.0) H Mean Corpuscular Hemoglobin Concent 33.9 G/DL (32.0-36.0) Red Cell Distribution Width 13.7 % (11.6-14.8) Platelet Count 146 K/UL (150-450) L Mean Platelet Volume 9.9 FL (6.5-10.1) Neutrophils (%) (Auto) % (45.0-75.0) Lymphocytes (%) (Auto) % (20.0-45.0) Monocytes (%) (Auto) % (1.0-10.0) Eosinophils (%) (Auto) % (0.0-3.0) Basophils (%) (Auto) % (0.0-2.0) Differential Total Cells Counted 100 Neutrophils % (Manual) 86 % (45-75) H Lymphocytes % (Manual) 6 % (20-45) L Monocytes % (Manual) 7 % (1-10) Eosinophils % (Manual) 1 % (0-3) Basophils % (Manual) 0 % (0-2) Band Neutrophils 0 % (0-8) Platelet Estimate Decreased L Platelet Morphology Normal Red Blood Cell Morphology Normal Sodium Level 138 MMOL/L (136-145) Potassium Level 3.5 MMOL/L (3.5-5.1) Chloride Level 107 MMOL/L (98-107) Carbon Dioxide Level 24 MMOL/L (21-32) Anion Gap 7 mmol/L (5-15) Blood Urea Nitrogen 26 mg/dL (7-18) H Creatinine 1.0 MG/DL (0.55-1.30) Estimat Glomerular Filtration Rate mL/min (>60) Glucose Level 121 MG/DL (74-106) H Calcium Level 9.3 MG/DL (8.5-10.1) Total Bilirubin 1.4 MG/DL (0.2-1.0) H Direct Bilirubin 0.4 MG/DL (0.0-0.3) H Aspartate Amino Transf (AST/SGOT) 38 U/L (15-37) H Alanine Aminotransferase (ALT/SGPT) 34 U/L (12-78) Alkaline Phosphatase 120 U/L (46-116) H Troponin I 0.172 ng/mL (0.000-0.056) Total Protein 7.1 G/DL (6.4-8.2) Albumin 2.3 G/DL (3.4-5.0) L Globulin 4.8 g/dL Albumin/Globulin Ratio 0.5 (1.0-2.7) L Urine Color Pending Urine Appearance Pending Urine pH Pending Urine Specific [place] Pending Urine Protein Pending Urine Glucose (UA) Pending Urine Ketones Pending Urine Blood Pending Urine Nitrite Pending Urine Bilirubin Pending Urine Urobilinogen Pending Urine Leukocyte Esterase Pending Urine RBC Pending Urine WBC Pending Urine Squamous Epithelial Cells Pending Urine Bacteria Pending Microbiology Date/Time Source Procedure Growth Status 02/22/19 04:35 Blood Blood Culture - Preliminary NO GROWTH AFTER 24 HOURS Resulted 02/22/19 04:20 Blood Blood Culture - Preliminary NO GROWTH AFTER 24 HOURS Resulted 02/22/19 05:00 Nasal Nares - Final Complete 02/22/19 05:00 Nasal Nares - Final Complete Annie Reardon MD Feb 23, 2019 15:06
[2019-02-23 15:07] LABS: COLOR,URINE YELLOW
[2019-02-24] MEDS: Vancomycin 1 GM in D5W 275 ML IVPB SCH (00:43)
[2019-02-24] MEDS: NovoLOG Insulin Flexpen SUBQ SCH ×4 (00:44→18:00)
[2019-02-24 04:00] VITALS: BP 150/80
[2019-02-24 08:00] VITALS: BP 155/75
[2019-02-24] MEDS: Pantoprazole Inj IVP SCH (08:29)
[2019-02-24] MEDS: Eliquis 5mg tablet ORAL SCH ×2 (08:29→20:37)
[2019-02-24] MEDS: Cefepime HCl 1 GM in D5W 110 ML IVPB SCH ×2 (08:30→20:37)
--- NOTE | 2019-02-24 10:30 | Consultation ---
DATE OF CONSULTATION: 02/22/2019 CARDIOLOGY CONSULTATION CONSULTING PHYSICIAN: Irma Moody M.D. REFERRING PHYSICIAN: Davion Cuello M.D. This is being done as coverage for Dr. Majano. REASON FOR CONSULT: Hypertension and dyspnea. HISTORY OF PRESENT ILLNESS: History is obtained from the patient's chart as she is nonverbal and unable to provide any information. The patient is an 83-year-old woman with a history of diabetes, heart failure, dementia, and hypertension. She is a convalescent home resident and is not ambulatory. At the [facility] home today, she was found to be hypoxic with oxygen saturation 76% on room air. She was febrile to 101.8. She was placed on BiPAP ventilation as oxygen saturations remained in the 80s on nasal cannula. She was admitted to the ICU for further treatment. At the [facility] today, she was noted to be hypoxic with oxygen saturations in the 70s. She was transferred to the emergency room where temperature was 100.9. Per the assisted, temperature was 101.8. Her oxygen saturation at the [facility] facility improved to only 88% on nasal cannula. Today at the assisted, she was reported to have an oxygen saturation of 76% on room air, improving to 88% on nasal cannula. Temperature was reported at 101.8. She was brought to the emergency room by paramedics. Per the emergency room record, her temperature was 100.9, pulse 120, blood pressure 166/83. Pulse oximeter was reported to be 94% on two liters, however, she was significantly tachypneic and therefore was placed on BiPAP ventilation. Her white blood count was 20,000 and chest x-ray showed basilar infiltrate and volume loss of the left lung. She was admitted for treatment of hypoxia with respiratory failure, possible pneumonia. Cardiology evaluation was requested for assistance with management of her blood pressure and cardiac evaluation given the history of congestive heart failure. MEDICATIONS AT [facility]: Tylenol, apixaban 5 mg twice daily, clonidine 0.1 mg every 6 hours, DuoNeb nebulizer p.r.n., and simethicone p.r.n. CURRENT MEDICATIONS: Include pantoprazole 40 mg IV, cefepime 1 g IV q.12 hours, subcutaneous heparin 5000 units q.12 hours, labetalol as needed, vancomycin 1 g q.36 hours IV, insulin sliding scale, and DuoNeb every 4 hours nebulizer as needed. ALLERGIES: No known drug allergies. PAST MEDICAL HISTORY: As noted above. SOCIAL HISTORY: Not obtainable from the patient or chart. REVIEW OF SYSTEMS: Not obtainable from the patient or chart. PHYSICAL EXAMINATION: VITAL SIGNS: Blood pressure is 185/64, pulse 92 and regular, respirations 27, and temperature 101 rectally. GENERAL: Sedated, chronically ill-appearing female, who is on BiPAP vent, not responsive. HEENT: Normocephalic and atraumatic. Sclerae anicteric. BiPAP mask in place. NECK: Supple. There is no jugular venous distention. No carotid bruits. LUNGS: Bilateral rhonchi diffusely. HEART: Regular, S1 and S2 with no murmur or S3. ABDOMEN: Positive bowel sounds. Soft, nondistended. G-tube in place. EXTREMITIES: No cyanosis, clubbing, or edema. NEUROLOGIC: Unable to test due to the patient's condition. There are contractures of the upper extremities, 0/5. Motor, unable to test due to the patient's condition. LABORATORY DATA: White blood count 20,000, hemoglobin 14, hematocrit 44. Sodium 135, potassium 4.5, chloride 103, bicarbonate 28, BUN 29, creatinine 1.2. Glucose 178. Troponin 0.13, repeat 0.16. EKG, sinus tachycardia, 117 beats per minute, axis -30 degrees. Nonspecific T-wave changes. Possible right atrial enlargement. (No old EKG available for comparison). Chest x-ray (unable to pull up images) Per report, elevation of left hemidiaphragm. Bilateral interstitial disease. Central bronchial wall thickening. Normal heart size. ASSESSMENT AND RECOMMENDATIONS: The patient is an 83-year-old woman with a history of hypertension, congestive heart failure, dementia, and on chronic anticoagulation (uncertain indication). She is a convalescent home resident and is bedridden. She was admitted with hypoxia, fever, leukocytosis, and abnormal chest x-ray. She likely has pneumonia causing her presentation. She is also noted to be hypertensive, but does not appear in congestive heart failure. Preliminary echo report though technically difficult study, reported normal left ventricular function. She has mild troponin elevation, which is likely due to demand ischemia. Her EKG does not show any diagnostic ST-segment changes of an acute coronary syndrome. We will start amlodipine for hypertension. We will continue to trend troponins and check serial EKGs. Further treatment of her pneumonia will be as per the primary team. Irma Moody M.D. DR: STEVEN JOB#: [id number] CC:
[2019-02-24] MEDS: Albuterol/Ipratropium 3ml neb HHN PRN ×2 (10:32→19:48)
--- NOTE | 2019-02-24 11:02 | Pulmonology Progress Note ---
Assessment/Plan Problems: (1) Sepsis (2) Nosocomial pneumonia (3) NSTEMI (non-ST elevated myocardial infarction) (4) Fever (5) Hypoxia (6) Diabetes mellitus (7) Feeding by G-tube (8) CAD (coronary artery disease) (9) Parkinson disease (10) Dementia with behavioral disturbance Assessment/Plan afebrile wbc decreasing all cultures reviewed, negative so far continue abx Echo reviewed, difficult study but LV is normal check cxr in am titrate bipap to fio2 of 92% tolerating feeding Pt is very appropriate for DNR and DNI, family not realistic. Subjective ROS Limited/Unobtainable: Yes Interval Events: onBIPAP Allergies: Coded Allergies: No Known Allergies (Unverified , 02/22/19) Objective Last 24 Hour Vital Signs Date Time Temp Pulse Resp B/P (MAP) Pulse Ox O2 Delivery O2 Flow Rate FiO2 02/24/19 10:39 91 27 99 Full Face 30 02/24/19 10:33 83 24 100 Venturi Mask 8.0 40 81 24 100 02/24/19 08:26 63 155/75 02/24/19 08:00 12.0 50 02/24/19 08:00 98.4 63 17 155/75 (101) 100 02/24/19 08:00 Bi-pap 02/24/19 08:00 85 02/24/19 07:48 100 Venturi Mask 8.0 40 02/24/19 04:00 12.0 50 02/24/19 04:00 98.7 72 24 150/80 (103) 100 02/24/19 04:00 Bi-pap 02/24/19 04:00 72 02/24/19 00:00 89 02/24/19 00:00 Bi-pap 02/23/19 23:00 98.1 88 24 151/81 (104) 100 02/23/19 22:00 89 24 155/79 (104) 100 02/23/19 21:00 83 22 134/67 (89) 100 02/23/19 20:14 192/86 02/23/19 20:00 100 Venturi Mask 12.0 50 02/23/19 20:00 Bi-pap 02/23/19 20:00 12.0 50 02/23/19 20:00 98.1 86 26 170/95 (120) 100 02/23/19 19:37 60 02/23/19 19:00 67 20 147/67 (93) 100 02/23/19 18:00 97.5 85 27 169/86 (113) 100 02/23/19 17:00 76 23 149/75 (99) 100 02/23/19 16:00 12.0 50 02/23/19 16:00 98.1 82 21 163/94 (117) 100 02/23/19 16:00 Bi-pap 02/23/19 15:41 96 02/23/19 15:00 69 23 138/68 (91) 100 02/23/19 14:00 87 26 157/76 (103) 100 02/23/19 13:00 81 19 145/61 (89) 100 02/23/19 12:00 12.0 50 02/23/19 12:00 98.3 96 29 154/81 (105) 100 02/23/19 12:00 Bi-pap 02/23/19 11:55 93 Intake and Output 02/23/19 02/24/19 19:00 07:00 Intake Total 1550 ml 1180.0 ml Output Total 415 ml 300 ml Balance 1135 ml 880.0 ml Intake Free Water 150 ml IV Total 1010 ml 1060.0 ml Tube Feeding 390 ml 120 ml Output Urine Total 415 ml 300 ml General Appearance: WD/WN HEENT: normocephalic, atraumatic Respiratory/Chest: chest wall non-tender, crackles/rales Abdomen: normal bowel sounds, soft, non tender Extremities: no cyanosis Skin: no rash, no lesions Lymphatic: no neck adenopathy Microbiology Date/Time Source Procedure Growth Status 02/22/19 04:35 Blood Blood Culture - Preliminary NO GROWTH AFTER 24 HOURS Resulted 02/22/19 04:20 Blood Blood Culture - Preliminary NO GROWTH AFTER 24 HOURS Resulted 02/22/19 05:00 Nasal Nares - Final Complete 02/22/19 05:00 Nasal Nares - Final Complete 02/22/19 04:35 Nasal Nares MRSA Culture - Final NO METHICILLIN RESISTANT STAPH AUREUS... Complete 02/23/19 14:30 Indwelling Cath Urine Culture - Preliminary NO GROWTH Resulted 02/22/19 04:35 Rectum - Final NO CARBAPENEM-RESISTANT ENTEROBACTERI... Complete 02/22/19 04:35 Rectum VRE Culture - Final NO VANCOMYCIN RESISTANT ENTEROCOCCUS ... Complete Laboratory Tests 02/23/19 14:30: Urine Color Yellow, Urine Appearance Clear, Urine pH 5, Urine Specific [place] 1.025, Urine Protein 3+H, Urine Glucose (UA) Negative, Urine Ketones 1+H, Urine Blood 2+H, Urine Nitrite Negative, Urine Bilirubin Negative, Urine Urobilinogen 1H, Urine Leukocyte Esterase Negative, Urine RBC 10-15H, Urine WBC 0-2, Urine Squamous Epithelial Cells Few, Urine Bacteria Few Current Medications Medications (Trade) Dose Ordered Sig/Steve Route PRN Reason Start Time Stop Time Status Last Admin Dose Admin Acetaminophen (Tylenol) 650 mg Q4H PRN NG Fever, Temp > 100.5 02/22/19 21:00 03/24/19 20:59 02/23/19 04:25 Acetaminophen (Tylenol) 650 mg Q4H PRN ORAL fever 02/22/19 21:00 03/24/19 20:59 Albuterol/ Ipratropium (Albuterol/ Ipratropium) 3 ml Q15M HHN 02/22/19 05:00 02/27/19 04:59 02/22/19 05:49 Albuterol/ Ipratropium (Albuterol/ Ipratropium) 3 ml Q4H PRN HHN Shortness of Breath 02/22/19 21:00 02/27/19 20:59 02/24/19 10:32 Amlodipine Besylate (Norvasc) 2.5 mg DAILY GT 02/23/19 09:00 03/25/19 08:59 02/24/19 08:26 Apixaban (Eliquis) 5 mg Q12HR ORAL 02/22/19 21:00 03/24/19 20:59 02/24/19 08:29 Cefepime HCl 1 gm/ Dextrose 110 ml @ 220 mls/hr EVERY 12 HOURS IVPB 02/22/19 21:00 03/01/19 20:59 02/24/19 08:30 Hydralazine HCl (Apresoline) 10 mg Q4H PRN IV sbp>160 02/22/19 21:00 03/24/19 20:59 02/23/19 20:14 Insulin Aspart (NovoLOG) EVERY 6 HOURS SUBQ 02/23/19 06:00 03/24/19 11:29 02/24/19 00:44 Labetalol HCl (Normodyne) 10 mg Q6H PRN IV For High Blood Pressure 02/22/19 15:45 03/24/19 15:44 02/22/19 16:15 Morphine Sulfate (Morphine Sulfate) 2 mg Q4H PRN IVP Moderate Pain (Pain Scale 4-6) 02/22/19 21:00 03/01/19 20:59 Nitroglycerin (Ntg) 0.4 mg PRN PRN SL Prn Chest Pain, 5 MIN 02/22/19 21:00 03/24/19 20:59 Ondansetron HCl (Zofran) 4 mg Q6H PRN IVP Nausea & Vomiting 02/22/19 21:00 03/24/19 20:59 Pantoprazole (Protonix) 40 mg DAILY IVP 02/23/19 10:00 03/25/19 09:59 02/24/19 08:29 Polyethylene Glycol (Miralax) 17 gm DAILYPRN PRN ORAL Constipation 02/22/19 21:00 03/24/19 20:59 Sodium Chloride 1,000 ml @ 75 mls/hr [id number] IV 02/22/19 10:15 03/24/19 10:14 02/23/19 18:00 Temazepam (Restoril) 15 mg HSPRN PRN ORAL Insomnia 02/22/19 21:00 03/01/19 20:59 Vancomycin HCl (Vanco rx to dose) 1 ea DAILY PRN MISC Per rx protocol 02/22/19 10:15 03/24/19 10:14 Vancomycin HCl 1 gm/Dextrose 275 ml @ 183.3 mls/ hr Q36H IVPB 02/22/19 12:00 02/27/19 11:59 02/24/19 00:43 Davion Cuello MD Feb 24, 2019 11:02
[2019-02-24 12:00] VITALS: BP 151/94
[2019-02-24] MEDS ORDERED: D5NS 1000ml IV ONE (14:49)
[2019-02-24] MEDS ORDERED: Tubing IV Secondary IV ONE ×2 (14:49→17:11)
[2019-02-24] MEDS ORDERED: NS 275ml ONE (14:49)
[2019-02-24 15:56] VITALS: BP 147/77
[2019-02-24 20:00] VITALS: BP 138/71
--- NOTE | 2019-02-24 20:16 | Cardiology Progress Note ---
Assessment/Plan Assessment/Plan pneumoni htn dementia chronic anticoag for chronic dvt dm abn trop demand related wbc is better fever subsiding trop no peak no narcisa to suggest acs continue abx and pulm toilette omar sinus ekg await final echo i am unable to down load [facility] study to review personally dc ivf low dsoe of iv lasix Subjective ROS Limited/Unobtainable: Yes Objective Last 24 Hour Vital Signs Date Time Temp Pulse Resp B/P (MAP) Pulse Ox O2 Delivery O2 Flow Rate FiO2 02/24/19 19:49 91 20 100 Venturi Mask 8.0 40 88 22 100 02/24/19 19:49 100 Venturi Mask 8.0 40 02/24/19 16:00 59 02/24/19 16:00 Bi-pap 02/24/19 16:00 12.0 50 02/24/19 15:56 98.7 84 19 147/77 (100) 100 02/24/19 12:00 35 02/24/19 12:00 86 02/24/19 12:00 Bi-pap 02/24/19 12:00 98.9 91 29 151/94 (113) 99 02/24/19 10:39 91 27 99 Full Face 30 02/24/19 10:33 83 24 100 Venturi Mask 8.0 40 81 24 100 02/24/19 08:26 63 155/75 02/24/19 08:00 12.0 50 02/24/19 08:00 98.4 63 17 155/75 (101) 100 02/24/19 08:00 Bi-pap 02/24/19 08:00 85 02/24/19 07:48 100 Venturi Mask 8.0 40 02/24/19 04:00 12.0 50 02/24/19 04:00 98.7 72 24 150/80 (103) 100 02/24/19 04:00 Bi-pap 02/24/19 04:00 72 02/24/19 00:00 89 02/24/19 00:00 Bi-pap 02/23/19 23:00 98.1 88 24 151/81 (104) 100 02/23/19 22:00 89 24 155/79 (104) 100 02/23/19 21:00 83 22 134/67 (89) 100 02/23/19 20:14 192/86 General Appearance: no apparent distress, patient on isolation Cardiovascular: normal rate Respiratory/Chest: rhonchi - bilaterally, expiratory wheezing Abdomen: normal bowel sounds, non tender, soft Extremities: trace edema Intake and Output 02/23/19 02/24/19 19:00 07:00 Intake Total 1550 ml 1180.0 ml Output Total 415 ml 300 ml Balance 1135 ml 880.0 ml Intake Free Water 150 ml IV Total 1010 ml 1060.0 ml Tube Feeding 390 ml 120 ml Output Urine Total 415 ml 300 ml Microbiology Date/Time Source Procedure Growth Status 02/22/19 04:35 Blood Blood Culture - Preliminary NO GROWTH AFTER 24 HOURS Resulted 02/22/19 04:20 Blood Blood Culture - Preliminary NO GROWTH AFTER 24 HOURS Resulted 02/22/19 05:00 Nasal Nares - Final Complete 02/22/19 05:00 Nasal Nares - Final Complete 02/22/19 04:35 Nasal Nares MRSA Culture - Final NO METHICILLIN RESISTANT STAPH AUREUS... Complete 02/23/19 14:30 Indwelling Cath Urine Culture - Preliminary NO GROWTH Resulted 02/22/19 04:35 Rectum - Final NO CARBAPENEM-RESISTANT ENTEROBACTERI... Complete 02/22/19 04:35 Rectum VRE Culture - Final NO VANCOMYCIN RESISTANT ENTEROCOCCUS ... Complete Irving Majano MD Feb 24, 2019 20:16
[2019-02-25] VITALS (7 sets, daily range): BP systolic 144–161; BP diastolic 73–97
[2019-02-25] MEDS: Albuterol/Ipratropium 3ml neb HHN PRN ×3 (02:09→19:38)
[2019-02-25 05:32] LABS: BASOPHILS % (AUTO) 0.5 % (0.0-2.0); EOSINOPHILS % (AUTO) 0.1 % (0.0-3.0); HEMATOCRIT 38.7 % (37.0-47.0); LYMPHOCYTES % (AUTO) 16.7 % (20.0-45.0); MEAN CORPUSCULAR VOLUME 99 FL (80-99); MONOCYTES % (AUTO) 11.6 % (1.0-10.0); NEUTROPHILS % (AUTO) 71.2 % (45.0-75.0); PLATELET COUNT 185 K/UL (150-450); RED BLOOD COUNT 3.91 M/UL (4.20-5.40); RED CELL DISTRIBUTION WIDTH 13.9 % (11.6-14.8); WHITE BLOOD COUNT 6.5 K/UL (4.8-10.8)
[2019-02-25] MEDS: NovoLOG Insulin Flexpen SUBQ SCH ×4 (05:52→17:27)
[2019-02-25 06:01] LABS: ALANINE AMINOTRANSFERASE 35 U/L (12-78); ALBUMIN 2.3 G/DL (3.4-5.0); ALBUMIN/GLOBULIN RATIO 0.5 (1.0-2.7); ALKALINE PHOSPHATASE 113 U/L (46-116); ANION GAP 6 mmol/L (5-15); ASPARTATE AMINO TRANSFERASE 41 U/L (15-37); BILIRUBIN,TOTAL 0.5 MG/DL (0.2-1.0); BLOOD UREA NITROGEN 22 mg/dL (7-18); CALCIUM 8.9 MG/DL (8.5-10.1); CARBON DIOXIDE 28 MMOL/L (21-32); CHLORIDE 111 MMOL/L (98-107); SODIUM 145 MMOL/L (136-145)
[2019-02-25] MEDS: Albuterol/Ipratropium 3ml neb HHN SCH ×58 (07:54→13:17)
[2019-02-25] MEDS: Pantoprazole Inj IVP SCH (08:25)
[2019-02-25] MEDS: Cefepime HCl 1 GM in D5W 110 ML IVPB SCH ×2 (08:26→21:54)
[2019-02-25] MEDS: Eliquis 5mg tablet ORAL SCH ×2 (08:28→21:54)
--- NOTE | 2019-02-25 10:46 | Pulmonology Progress Note ---
Assessment/Plan Problems: (1) Sepsis (2) Nosocomial pneumonia (3) NSTEMI (non-ST elevated myocardial infarction) (4) Fever (5) Hypoxia (6) Diabetes mellitus (7) Feeding by G-tube (8) CAD (coronary artery disease) (9) Parkinson disease (10) Dementia with behavioral disturbance Assessment/Plan got one dose of lasix afebrile wbc decreasing all cultures reviewed, negative so far continue abx Echo reviewed, difficult study but LV is normal check cxr in am titrate bipap to fio2 of 92% tolerating feeding Pt is very appropriate for DNR and DNI, family not realistic. Subjective ROS Limited/Unobtainable: Yes Constitutional: Reports: no symptoms Respiratory: Reports: no symptoms Allergies: Coded Allergies: No Known Allergies (Unverified , 02/22/19) Objective Last 24 Hour Vital Signs Date Time Temp Pulse Resp B/P (MAP) Pulse Ox O2 Delivery O2 Flow Rate FiO2 02/25/19 08:26 94 146/76 02/25/19 08:00 99.1 87 23 160/97 (118) 100 02/25/19 08:00 12.0 50 02/25/19 08:00 Bi-pap 02/25/19 07:41 85 02/25/19 06:53 100 Venturi Mask 8.0 40 02/25/19 04:00 99.2 94 27 146/76 (99) 100 02/25/19 04:00 12.0 50 02/25/19 04:00 Bi-pap 02/25/19 03:40 94 02/25/19 02:09 88 22 100 Venturi Mask 8.0 40 89 24 100 02/25/19 01:02 Bi-pap 02/25/19 01:01 Bi-pap 02/25/19 00:00 Bi-pap 02/25/19 00:00 99.1 94 24 158/76 (103) 100 02/25/19 00:00 89 02/24/19 20:00 98.3 75 24 138/71 (93) 100 02/24/19 20:00 Bi-pap 02/24/19 20:00 12.0 50 02/24/19 19:49 91 20 100 Venturi Mask 8.0 40 88 22 100 02/24/19 19:49 100 Venturi Mask 8.0 40 02/24/19 19:24 63 1/2/20 16:00 59 02/24/19 16:00 Bi-pap 02/24/19 16:00 12.0 50 02/24/19 15:56 98.7 84 19 147/77 (100) 100 02/24/19 12:00 35 02/24/19 12:00 86 02/24/19 12:00 Bi-pap 02/24/19 12:00 98.9 91 29 151/94 (113) 99 Intake and Output 02/24/19 02/25/19 19:00 07:00 Intake Total 1023 ml 940 ml Output Total 760 ml Balance 1023 ml 180 ml Intake Free Water 200 ml 200 ml IV Total 433 ml 110 ml Tube Feeding 390 ml 630 ml Output Urine Total 760 ml # Voids 3 # Bowel Movements 1 General Appearance: WD/WN HEENT: normocephalic, atraumatic Respiratory/Chest: chest wall non-tender, lungs clear, crackles/rales Breasts: no masses Cardiovascular: normal rate, no JVD Abdomen: normal bowel sounds, soft, non tender Extremities: no clubbing Skin: no ulcers Microbiology Date/Time Source Procedure Growth Status 02/23/19 20:00 Sputum Gram Stain - Final Resulted 02/23/19 20:00 Sputum Sputum Culture Pending Resulted 02/23/19 14:30 Indwelling Cath Urine Culture - Preliminary NO GROWTH AFTER 24 HOURS Resulted Laboratory Tests 02/25/19 03:35: White Blood Count 6.5, Red Blood Count 3.91L, Hemoglobin 13.0, Hematocrit 38.7, Mean Corpuscular Volume 99, Mean Corpuscular Hemoglobin 33.2H, Mean Corpuscular Hemoglobin Concent 33.5, Red Cell Distribution Width 13.9, Platelet Count 185, Mean Platelet Volume 9.9, Neutrophils (%) (Auto) 71.2, Lymphocytes (%) (Auto) 16.7L, Monocytes (%) (Auto) 11.6H, Eosinophils (%) (Auto) 0.1, Basophils (%) ( Auto) 0.5, Sodium Level 145, Potassium Level 3.0L, Chloride Level 111H, Carbon Dioxide Level 28, Anion Gap 6, Blood Urea Nitrogen 22H, Creatinine 1.0, Estimat Glomerular Filtration Rate , Glucose Level 94, Calcium Level 8.9, Total Bilirubin 0.5, Aspartate Amino Transf (AST/SGOT) 41H, Alanine Aminotransferase ( ALT/SGPT) 35, Alkaline Phosphatase 113, Pro-B-Type Natriuretic Peptide 820H, Total Protein 7.0, Albumin 2.3L, Globulin 4.7, Albumin/Globulin Ratio 0.5L Current Medications Medications (Trade) Dose Ordered Sig/Steve Route PRN Reason Start Time Stop Time Status Last Admin Dose Admin Acetaminophen (Tylenol) 650 mg Q4H PRN NG Fever, Temp > 100.5 02/22/19 21:00 03/24/19 20:59 02/23/19 04:25 Acetaminophen (Tylenol) 650 mg Q4H PRN ORAL fever 02/22/19 21:00 03/24/19 20:59 Albuterol/ Ipratropium (Albuterol/ Ipratropium) 3 ml Q4H PRN HHN Shortness of Breath 02/22/19 21:00 02/27/19 20:59 02/25/19 02:09 Amlodipine Besylate (Norvasc) 2.5 mg DAILY GT 02/23/19 09:00 03/25/19 08:59 02/25/19 08:26 Apixaban (Eliquis) 5 mg Q12HR ORAL 02/22/19 21:00 03/24/19 20:59 02/25/19 08:28 Cefepime HCl 1 gm/ Dextrose 110 ml @ 220 mls/hr EVERY 12 HOURS IVPB 02/22/19 21:00 03/01/19 20:59 02/25/19 08:26 Hydralazine HCl (Apresoline) 10 mg Q4H PRN IV sbp>160 02/22/19 21:00 03/24/19 20:59 02/23/19 20:14 Insulin Aspart (NovoLOG) EVERY 6 HOURS SUBQ 02/23/19 06:00 03/24/19 11:29 02/24/19 00:44 Labetalol HCl (Normodyne) 10 mg Q6H PRN IV For High Blood Pressure 02/22/19 15:45 03/24/19 15:44 02/22/19 16:15 Morphine Sulfate (Morphine Sulfate) 2 mg Q4H PRN IVP Moderate Pain (Pain Scale 4-6) 02/22/19 21:00 03/01/19 20:59 Nitroglycerin (Ntg) 0.4 mg PRN PRN SL Prn Chest Pain, 5 MIN 02/22/19 21:00 03/24/19 20:59 Ondansetron HCl (Zofran) 4 mg Q6H PRN IVP Nausea & Vomiting 02/22/19 21:00 03/24/19 20:59 Pantoprazole (Protonix) 40 mg DAILY IVP 02/23/19 10:00 03/25/19 09:59 02/25/19 08:25 Polyethylene Glycol (Miralax) 17 gm DAILYPRN PRN ORAL Constipation 02/22/19 21:00 03/24/19 20:59 Potassium Chloride 100 ml @ 100 mls/hr Q1HR IVPB 02/25/19 11:00 02/25/19 14:59 UNV Temazepam (Restoril) 15 mg HSPRN PRN ORAL Insomnia 02/22/19 21:00 03/01/19 20:59 Vancomycin HCl (Vanco rx to dose) 1 ea DAILY PRN MISC Per rx protocol 02/22/19 10:15 03/24/19 10:14 Vancomycin HCl 1 gm/Dextrose 275 ml @ 183.3 mls/ hr Q36H IVPB 02/22/19 12:00 02/27/19 11:59 02/24/19 00:43 Davion Cuello MD Feb 25, 2019 10:46
[2019-02-25] MEDS ORDERED: Sodium Chloride for KCL Premix X 4hrs IV SCH ×2 (11:00→13:00)
--- NOTE | 2019-02-25 11:23 | Consultation ---
History of Present Illness General Date patient seen: Feb 25, 2019 Chief Complaint: Fever Reason for Consultation: PNA Present Illness HPI Ms. Macedo is an 83 yo bed bound female with PMHx of DM, CAD, Parkinsons CHF, Dementia, S/P G tube who was brought to the ED on 02/22/19 after being found hypoxic. She is not verbal and unable to give a history. In the ED she was found to be febrile to 102 and and had to be placed on BiPAP. She has been on BiPAP intermittently since. Her cultures have been negative to date and her UA was negative. She had however responded to the Abx and is no longer febrile. Her initial leukocytosis has also resolved. ID was consulted for PNA PMHx/PSHx DM CAD Parkinsons CHF Dementia S/P G tube SocHx Unable to obtain due to BiPAP and dementia FamHx Unable to obtain due to BiPAP and dementia Allergies: Coded Allergies: No Known Allergies (Unverified , 02/22/19) Medication History Scheduled Acetaminophen (8 Hour), 650 MG ORAL Q8H, (Reported) Clonidine Hcl* (Catapres*), 0.1 MG ORAL EVERY 6 HOURS, (Reported) Na Phos,M-B/Na Phos,Di-Ba* (Fleet Enema*), 133 ML RECTAL DAILY, (Reported) Scheduled PRN Hydrocodone Bit/Acetaminophen 5-325* ([place] 5-325*), 1 TAB ORAL Q4H PRN for For Pain, (Reported) Miscellaneous Medications Apixaban (Eliquis), 5 MG PO, (Reported) Bisacodyl (Bisacodyl), 10 MG RC, (Reported) Ipratropium/Albuterol Sulfate (DuoNeb 0.5-3(2.5)mg/3ml), 3 ML HHN, (Reported) Simethicone (Gas Relief), 200 MG GT, (Reported) Patient History Healthcare decision maker Resuscitation status Full Code Advanced Directive on File Review of Systems ROS Narrative Unable to obtain due to BiPAP and dementia Physical Exam Last 24 Hour Vital Signs Date Time Temp Pulse Resp B/P (MAP) Pulse Ox O2 Delivery O2 Flow Rate FiO2 02/25/19 08:26 94 146/76 02/25/19 08:00 99.1 87 23 160/97 (118) 100 02/25/19 08:00 12.0 50 02/25/19 08:00 Bi-pap 02/25/19 07:41 85 02/25/19 06:53 100 Venturi Mask 8.0 40 02/25/19 04:00 99.2 94 27 146/76 (99) 100 02/25/19 04:00 12.0 50 02/25/19 04:00 Bi-pap 02/25/19 03:40 94 02/25/19 02:09 88 22 100 Venturi Mask 8.0 40 89 24 100 02/25/19 01:02 Bi-pap 02/25/19 01:01 Bi-pap 02/25/19 00:00 Bi-pap 02/25/19 00:00 99.1 94 24 158/76 (103) 100 02/25/19 00:00 89 02/24/19 20:00 98.3 75 24 138/71 (93) 100 02/24/19 20:00 Bi-pap 02/24/19 20:00 12.0 50 02/24/19 19:49 91 20 100 Venturi Mask 8.0 40 88 22 100 02/24/19 19:49 100 Venturi Mask 8.0 40 02/24/19 19:24 63 02/24/19 16:00 59 02/24/19 16:00 Bi-pap 02/24/19 16:00 12.0 50 02/24/19 15:56 98.7 84 19 147/77 (100) 100 02/24/19 12:00 35 02/24/19 12:00 86 02/24/19 12:00 Bi-pap 02/24/19 12:00 98.9 91 29 151/94 (113) 99 Intake and Output 02/24/19 02/25/19 19:00 07:00 Intake Total 1023 ml 940 ml Output Total 760 ml Balance 1023 ml 180 ml Intake Free Water 200 ml 200 ml IV Total 433 ml 110 ml Tube Feeding 390 ml 630 ml Output Urine Total 760 ml # Voids 3 # Bowel Movements 1 Laboratory Tests Test 02/25/19 03:35 White Blood Count 6.5 K/UL (4.8-10.8) Red Blood Count 3.91 M/UL (4.20-5.40) L Hemoglobin 13.0 G/DL (12.0-16.0) Hematocrit 38.7 % (37.0-47.0) Mean Corpuscular Volume 99 FL (80-99) Mean Corpuscular Hemoglobin 33.2 PG (27.0-31.0) H Mean Corpuscular Hemoglobin Concent 33.5 G/DL (32.0-36.0) Red Cell Distribution Width 13.9 % (11.6-14.8) Platelet Count 185 K/UL (150-450) Mean Platelet Volume 9.9 FL (6.5-10.1) Neutrophils (%) (Auto) 71.2 % (45.0-75.0) Lymphocytes (%) (Auto) 16.7 % (20.0-45.0) L Monocytes (%) (Auto) 11.6 % (1.0-10.0) H Eosinophils (%) (Auto) 0.1 % (0.0-3.0) Basophils (%) (Auto) 0.5 % (0.0-2.0) Sodium Level 145 MMOL/L (136-145) Potassium Level 3.0 MMOL/L (3.5-5.1) L Chloride Level 111 MMOL/L (98-107) H Carbon Dioxide Level 28 MMOL/L (21-32) Anion Gap 6 mmol/L (5-15) Blood Urea Nitrogen 22 mg/dL (7-18) H Creatinine 1.0 MG/DL (0.55-1.30) Estimat Glomerular Filtration Rate mL/min (>60) Glucose Level 94 MG/DL (74-106) Calcium Level 8.9 MG/DL (8.5-10.1) Total Bilirubin 0.5 MG/DL (0.2-1.0) Aspartate Amino Transf (AST/SGOT) 41 U/L (15-37) H Alanine Aminotransferase (ALT/SGPT) 35 U/L (12-78) Alkaline Phosphatase 113 U/L (46-116) Pro-B-Type Natriuretic Peptide 820 pg/mL (0-125) H Total Protein 7.0 G/DL (6.4-8.2) Albumin 2.3 G/DL (3.4-5.0) L Globulin 4.7 g/dL Albumin/Globulin Ratio 0.5 (1.0-2.7) L Height (Feet): 5 Height (Inches): 3.00 Weight (Pounds): 160 Medications Current Medications Medications (Trade) Dose Ordered Sig/Steve Route PRN Reason Start Time Stop Time Status Last Admin Dose Admin Acetaminophen (Tylenol) 650 mg Q4H PRN NG Fever, Temp > 100.5 02/22/19 21:00 03/24/19 20:59 02/23/19 04:25 Acetaminophen (Tylenol) 650 mg Q4H PRN ORAL fever 02/22/19 21:00 03/24/19 20:59 Albuterol/ Ipratropium (Albuterol/ Ipratropium) 3 ml Q4H PRN HHN Shortness of Breath 02/22/19 21:00 02/27/19 20:59 02/25/19 02:09 Amlodipine Besylate (Norvasc) 2.5 mg DAILY GT 02/23/19 09:00 03/25/19 08:59 02/25/19 08:26 Apixaban (Eliquis) 5 mg Q12HR ORAL 02/22/19 21:00 03/24/19 20:59 02/25/19 08:28 Cefepime HCl 1 gm/ Dextrose 110 ml @ 220 mls/hr EVERY 12 HOURS IVPB 02/22/19 21:00 03/01/19 20:59 02/25/19 08:26 Hydralazine HCl (Apresoline) 10 mg Q4H PRN IV sbp>160 02/22/19 21:00 03/24/19 20:59 02/23/19 20:14 Insulin Aspart (NovoLOG) EVERY 6 HOURS SUBQ 02/23/19 06:00 03/24/19 11:29 02/24/19 00:44 Labetalol HCl (Normodyne) 10 mg Q6H PRN IV For High Blood Pressure 02/22/19 15:45 03/24/19 15:44 02/22/19 16:15 Morphine Sulfate (Morphine Sulfate) 2 mg Q4H PRN IVP Moderate Pain (Pain Scale 4-6) 02/22/19 21:00 03/01/19 20:59 Nitroglycerin (Ntg) 0.4 mg PRN PRN SL Prn Chest Pain, 5 MIN 02/22/19 21:00 03/24/19 20:59 Ondansetron HCl (Zofran) 4 mg Q6H PRN IVP Nausea & Vomiting 02/22/19 21:00 03/24/19 20:59 Pantoprazole (Protonix) 40 mg DAILY IVP 02/23/19 10:00 03/25/19 09:59 02/25/19 08:25 Polyethylene Glycol (Miralax) 17 gm DAILYPRN PRN ORAL Constipation 02/22/19 21:00 03/24/19 20:59 Potassium Chloride 100 ml @ 100 mls/hr Q1HR IVPB 02/25/19 11:00 02/25/19 14:59 Sodium Chloride 400 ml @ 100 mls/hr Q4H IV 02/25/19 11:00 02/25/19 14:59 Temazepam (Restoril) 15 mg HSPRN PRN ORAL Insomnia 02/22/19 21:00 03/01/19 20:59 Vancomycin HCl (Vanco rx to dose) 1 ea DAILY PRN MISC Per rx protocol 02/22/19 10:15 03/24/19 10:14 Vancomycin HCl 1 gm/Dextrose 275 ml @ 183.3 mls/ hr Q36H IVPB 02/22/19 12:00 02/27/19 11:59 02/24/19 00:43 Objective Narrative Gen: on facemask, Awake HEENT: NCAT, MMM, EOMI, PERRL, No Oral lesion, no scleral icterus NECK: Supple, No LAD, No JVD LUNGS: Coarse B/L with crackles CARDS: RRR, S1, S2, No M/R/G, ABD: Soft, ND, No R/G, + BS, No HSM, No Masses, PEG : Deferred Ext: C/C/E, Pulses 2+ B/L (DP, Rad): NEURO: A/O x 1, Generalized weakness SKIN: Warm/dry, No rashes Assessment/Plan Assessment/Plan: 83 yo bed bound female with PMHx of DM, CAD, Parkinsons CHF, Dementia, S/P G tube who was brought to the ED on 02/22/19 after being found hypoxic. Probable PNA vs Pulm Edema CXR - B/L Infiltrates Leukocytosis Fever Respiratory failure DM CAD Parkinsons CHF Dementia S/P G tube PLAN: - Continue Vancomycin #3/7 and Cefepime #3/7 pending Sputum Cx - f/u cultures - Resp care - Monitor CBC and Temps Thank you for this consult. [facility] will continue to follow the patient with you during this hospitalization. Edwin Lambert MD Feb 25, 2019 11:23
[2019-02-25] MEDS: Vancomycin 1 GM in D5W 275 ML IVPB SCH (11:42)
[2019-02-26] VITALS: BP 158/94
[2019-02-26] MEDS: Albuterol/Ipratropium 3ml neb HHN PRN (00:34)
[2019-02-26 04:00] VITALS: BP 159/93
[2019-02-26 05:36] LABS: EOSINOPHILS % (AUTO) 0.8 % (0.0-3.0); HEMATOCRIT 36.9 % (37.0-47.0); HEMOGLOBIN 12.5 G/DL (12.0-16.0); LYMPHOCYTES % (AUTO) 22.7 % (20.0-45.0); MEAN CORPUSCULAR VOLUME 98 FL (80-99); NEUTROPHILS % (AUTO) 63.6 % (45.0-75.0); PLATELET COUNT 178 K/UL (150-450); RED BLOOD COUNT 3.78 M/UL (4.20-5.40); RED CELL DISTRIBUTION WIDTH 13.3 % (11.6-14.8); WHITE BLOOD COUNT 5.9 K/UL (4.8-10.8)
[2019-02-26] MEDS: NovoLOG Insulin Flexpen SUBQ SCH ×5 (05:38→23:52)
[2019-02-26 06:22] LABS: ALANINE AMINOTRANSFERASE 36 U/L (12-78); ALBUMIN 2.3 G/DL (3.4-5.0); ALBUMIN/GLOBULIN RATIO 0.5 (1.0-2.7); ALKALINE PHOSPHATASE 113 U/L (46-116); ANION GAP 5 mmol/L (5-15); ASPARTATE AMINO TRANSFERASE 39 U/L (15-37); BILIRUBIN,TOTAL 0.6 MG/DL (0.2-1.0); BLOOD UREA NITROGEN 15 mg/dL (7-18); CALCIUM 8.9 MG/DL (8.5-10.1); CARBON DIOXIDE 31 MMOL/L (21-32); CHLORIDE 108 MMOL/L (98-107); POTASSIUM 3.3 MMOL/L (3.5-5.1); SODIUM 144 MMOL/L (136-145)
[2019-02-26 08:00] VITALS: BP 144/88
[2019-02-26] MEDS ORDERED: Sodium Chloride for KCL Premix X 4hrs IV SCH (09:00)
[2019-02-26] MEDS: Pantoprazole Inj IVP SCH (09:37)
[2019-02-26] MEDS: Eliquis 5mg tablet ORAL SCH ×2 (09:38→20:52)
[2019-02-26] MEDS: Cefepime HCl 1 GM in D5W 110 ML IVPB SCH ×2 (09:42→20:52)
--- NOTE | 2019-02-26 10:11 | Infectious Diseases Prog Note ---
Assessment/Plan Assessment/Plan Gen: on facemask, Awake HEENT: NCAT, MMM, EOMI, PERRL, No Oral lesion, no scleral icterus NECK: Supple, No LAD, No JVD LUNGS: Coarse B/L with crackles CARDS: RRR, S1, S2, No M/R/G, ABD: Soft, ND, No R/G, + BS, No HSM, No Masses, PEG : Deferred Ext: C/C/E, Pulses 2+ B/L (DP, Rad): NEURO: A/O x 1, Generalized weakness SKIN: Warm/dry, No rashes Assessment/Plan Assessment/Plan Assessment/Plan: 83 yo bed bound female with PMHx of DM, CAD, Parkinsons CHF, Dementia, S/P G tube who was brought to the ED on 02/22/19 after being found hypoxic. Probable PNA vs Pulm Edema CXR - B/L Infiltrates Sp Cx GNR and NF Leukocytosis Fever Respiratory failure DM CAD Parkinsons CHF Dementia S/P G tube PLAN: - Continue Cefepime #4/7 pending Sputum Cx - 02/26/19 SP Vancomycin #4 - f/u cultures - Resp care - Monitor CBC and Temps Thank you for this consult. [facility] will continue to follow the patient with you during this hospitalization. Subjective Allergies: Coded Allergies: No Known Allergies (Unverified , 02/22/19) Subjective Aferbike On 2L NC Leukocytosis resolved Objective Vital Signs Last 24 Hour Vital Signs Date Time Temp Pulse Resp B/P (MAP) Pulse Ox O2 Delivery O2 Flow Rate FiO2 02/26/19 09:38 92 144/88 02/26/19 08:45 2.0 02/26/19 08:33 Nasal Cannula 2.0 02/26/19 08:00 98.2 92 22 144/88 (106) 98 02/26/19 07:43 90 02/26/19 07:06 98 Nasal Cannula 2.0 28 02/26/19 04:00 99.6 104 20 159/93 (115) 97 02/26/19 04:00 Bi-pap 02/26/19 04:00 2.0 02/26/19 03:40 106 02/26/19 00:35 106 20 100 Nasal Cannula 2.0 28 103 20 99 1/4/20 00:00 98.7 105 20 158/94 (115) 99 02/26/19 00:00 2.0 02/26/19 00:00 Bi-pap 02/26/19 00:00 106 02/25/19 20:00 98.1 112 20 152/75 (100) 100 02/25/19 20:00 Bi-pap 02/25/19 20:00 2.0 02/25/19 19:39 90 24 100 Nasal Cannula 2.0 28 88 22 100 02/25/19 19:39 98 Nasal Cannula 2.0 28 02/25/19 19:33 104 02/25/19 19:02 144/85 (104) 02/25/19 17:56 161/88 02/25/19 16:01 2.0 02/25/19 16:00 Bi-pap 02/25/19 16:00 98.1 99 22 161/88 (112) 99 02/25/19 16:00 97 02/25/19 12:00 Bi-pap 02/25/19 12:00 74 02/25/19 12:00 98.9 86 22 156/73 (100) 99 02/25/19 12:00 6.0 35 Height (Feet): 5 Height (Inches): 3.00 Weight (Pounds): 159 Objective Gen: NAD 2L NC HEENT: NCAT, MMM, EOMI, PERRL LUNGS: Coarse B/L with crackles CARDS: RRR, S1, S2 ABD: Soft, ND Microbiology Date/Time Source Procedure Growth Status 02/23/19 20:00 Sputum Gram Stain - Final Resulted 02/23/19 20:00 Sputum Culture - Preliminary Gram Negative Bacillus 1 Usual Respiratory Ellie Resulted 02/23/19 14:30 Indwelling Cath Urine Culture - Final NO GROWTH AFTER 48 HOURS Complete Laboratory Tests Test 02/26/19 03:48 White Blood Count 5.9 K/UL (4.8-10.8) Red Blood Count 3.78 M/UL (4.20-5.40) L Hemoglobin 12.5 G/DL (12.0-16.0) Hematocrit 36.9 % (37.0-47.0) L Mean Corpuscular Volume 98 FL (80-99) Mean Corpuscular Hemoglobin 33.2 PG (27.0-31.0) H Mean Corpuscular Hemoglobin Concent 33.9 G/DL (32.0-36.0) Red Cell Distribution Width 13.3 % (11.6-14.8) Platelet Count 178 K/UL (150-450) Mean Platelet Volume 9.0 FL (6.5-10.1) Neutrophils (%) (Auto) 63.6 % (45.0-75.0) Lymphocytes (%) (Auto) 22.7 % (20.0-45.0) Monocytes (%) (Auto) 12.0 % (1.0-10.0) H Eosinophils (%) (Auto) 0.8 % (0.0-3.0) Basophils (%) (Auto) 1.0 % (0.0-2.0) Sodium Level 144 MMOL/L (136-145) Potassium Level 3.3 MMOL/L (3.5-5.1) L Chloride Level 108 MMOL/L (98-107) H Carbon Dioxide Level 31 MMOL/L (21-32) Anion Gap 5 mmol/L (5-15) Blood Urea Nitrogen 15 mg/dL (7-18) Creatinine 1.0 MG/DL (0.55-1.30) Estimat Glomerular Filtration Rate mL/min (>60) Glucose Level 117 MG/DL (74-106) H Calcium Level 8.9 MG/DL (8.5-10.1) Total Bilirubin 0.6 MG/DL (0.2-1.0) Aspartate Amino Transf (AST/SGOT) 39 U/L (15-37) H Alanine Aminotransferase (ALT/SGPT) 36 U/L (12-78) Alkaline Phosphatase 113 U/L (46-116) Pro-B-Type Natriuretic Peptide 464 pg/mL (0-125) H Total Protein 7.0 G/DL (6.4-8.2) Albumin 2.3 G/DL (3.4-5.0) L Globulin 4.7 g/dL Albumin/Globulin Ratio 0.5 (1.0-2.7) L Current Medications Medications (Trade) Dose Ordered Sig/Steve Route PRN Reason Start Time Stop Time Status Last Admin Dose Admin Acetaminophen (Tylenol) 650 mg Q4H PRN NG Fever, Temp > 100.5 02/22/19 21:00 03/24/19 20:59 02/23/19 04:25 Acetaminophen (Tylenol) 650 mg Q4H PRN ORAL fever 02/22/19 21:00 03/24/19 20:59 Albuterol/ Ipratropium (Albuterol/ Ipratropium) 3 ml Q4H PRN HHN Shortness of Breath 02/22/19 21:00 02/27/19 20:59 02/26/19 00:34 Amlodipine Besylate (Norvasc) 2.5 mg DAILY GT 02/23/19 09:00 03/25/19 08:59 02/26/19 09:38 Apixaban (Eliquis) 5 mg Q12HR ORAL 02/22/19 21:00 03/24/19 20:59 02/26/19 09:38 Cefepime HCl 1 gm/ Dextrose 110 ml @ 220 mls/hr EVERY 12 HOURS IVPB 02/22/19 21:00 03/01/19 20:59 02/26/19 09:42 Hydralazine HCl (Apresoline) 10 mg Q4H PRN IV sbp>160 02/22/19 21:00 03/24/19 20:59 02/25/19 17:56 Insulin Aspart (NovoLOG) EVERY 6 HOURS SUBQ 02/23/19 06:00 03/24/19 11:29 02/24/19 00:44 Labetalol HCl (Normodyne) 10 mg Q6H PRN IV For High Blood Pressure 02/22/19 15:45 03/24/19 15:44 02/22/19 16:15 Morphine Sulfate (Morphine Sulfate) 2 mg Q4H PRN IVP Moderate Pain (Pain Scale 4-6) 02/22/19 21:00 03/01/19 20:59 Nitroglycerin (Ntg) 0.4 mg PRN PRN SL Prn Chest Pain, 5 MIN 02/22/19 21:00 03/24/19 20:59 Ondansetron HCl (Zofran) 4 mg Q6H PRN IVP Nausea & Vomiting 02/22/19 21:00 03/24/19 20:59 Pantoprazole (Protonix) 40 mg DAILY IVP 02/23/19 10:00 03/25/19 09:59 02/26/19 09:37 Polyethylene Glycol (Miralax) 17 gm DAILYPRN PRN ORAL Constipation 02/22/19 21:00 03/24/19 20:59 Potassium Chloride 100 ml @ 100 mls/hr Q1H IVPB 02/26/19 09:00 02/26/19 12:59 02/26/19 09:37 Sodium Chloride 400 ml @ 100 mls/hr Q4H IV 02/26/19 09:00 02/26/19 12:59 02/26/19 09:42 Temazepam (Restoril) 15 mg HSPRN PRN ORAL Insomnia 02/22/19 21:00 03/01/19 20:59 Vancomycin HCl (Vanco rx to dose) 1 ea DAILY PRN MISC Per rx protocol 02/22/19 10:15 03/24/19 10:14 Vancomycin HCl 1 gm/Dextrose 275 ml @ 183.3 mls/ hr Q36H IVPB 02/22/19 12:00 02/27/19 11:59 02/25/19 11:42 Edwin Lambert MD Feb 26, 2019 10:11
--- NOTE | 2019-02-26 10:46 | Cardiology Progress Note ---
Assessment/Plan Assessment/Plan pneumoni htn dementia chronic anticoag for chronic dvt dm abn trop demand related wbc is better fever subsided trop no peak no narcisa to suggest acs continue abx and pulm toilette tele sinus await final echo i am unable to down load the study to review personally kcl ordered by dr yang looks ok Subjective Cardiovascular: Denies: chest pain, lightheadedness, palpitations Respiratory: Denies: shortness of breath Gastrointestinal/Abdominal: Denies: abdominal pain Genitourinary: Denies: burning Objective Last 24 Hour Vital Signs Date Time Temp Pulse Resp B/P (MAP) Pulse Ox O2 Delivery O2 Flow Rate FiO2 02/26/19 09:38 92 144/88 02/26/19 08:45 2.0 02/26/19 08:33 Nasal Cannula 2.0 02/26/19 08:00 98.2 92 22 144/88 (106) 98 02/26/19 07:43 90 02/26/19 07:06 98 Nasal Cannula 2.0 28 02/26/19 04:00 99.6 104 20 159/93 (115) 97 02/26/19 04:00 Bi-pap 02/26/19 04:00 2.0 02/26/19 03:40 106 02/26/19 00:35 106 20 100 Nasal Cannula 2.0 28 103 20 99 02/26/19 00:00 98.7 105 20 158/94 (115) 99 02/26/19 00:00 2.0 02/26/19 00:00 Bi-pap 02/26/19 00:00 106 02/25/19 20:00 98.1 112 20 152/75 (100) 100 02/25/19 20:00 Bi-pap 02/25/19 20:00 2.0 02/25/19 19:39 90 24 100 Nasal Cannula 2.0 28 88 22 100 02/25/19 19:39 98 Nasal Cannula 2.0 28 02/25/19 19:33 104 02/25/19 19:02 144/85 (104) 02/25/19 17:56 161/88 02/25/19 16:01 2.0 02/25/19 16:00 Bi-pap 02/25/19 16:00 98.1 99 22 161/88 (112) 99 02/25/19 16:00 97 02/25/19 12:00 Bi-pap 02/25/19 12:00 74 02/25/19 12:00 98.9 86 22 156/73 (100) 99 02/25/19 12:00 6.0 35 General Appearance: no apparent distress, alert Cardiovascular: normal rate Respiratory/Chest: crackles/rales Abdomen: normal bowel sounds, non tender, soft Extremities: no swelling Intake and Output 02/25/19 02/26/19 19:00 07:00 Intake Total 795.0 ml 540 ml Output Total 550 ml 800 ml Balance 245.0 ml -260 ml Intake Free Water 50 ml 100 ml IV Total 385.0 ml 110 ml Tube Feeding 360 ml 330 ml Output Urine Total 550 ml 800 ml # Bowel Movements 3 Laboratory Tests Test 02/26/19 03:48 White Blood Count 5.9 K/UL (4.8-10.8) Red Blood Count 3.78 M/UL (4.20-5.40) L Hemoglobin 12.5 G/DL (12.0-16.0) Hematocrit 36.9 % (37.0-47.0) L Mean Corpuscular Volume 98 FL (80-99) Mean Corpuscular Hemoglobin 33.2 PG (27.0-31.0) H Mean Corpuscular Hemoglobin Concent 33.9 G/DL (32.0-36.0) Red Cell Distribution Width 13.3 % (11.6-14.8) Platelet Count 178 K/UL (150-450) Mean Platelet Volume 9.0 FL (6.5-10.1) Neutrophils (%) (Auto) 63.6 % (45.0-75.0) Lymphocytes (%) (Auto) 22.7 % (20.0-45.0) Monocytes (%) (Auto) 12.0 % (1.0-10.0) H Eosinophils (%) (Auto) 0.8 % (0.0-3.0) Basophils (%) (Auto) 1.0 % (0.0-2.0) Sodium Level 144 MMOL/L (136-145) Potassium Level 3.3 MMOL/L (3.5-5.1) L Chloride Level 108 MMOL/L (98-107) H Carbon Dioxide Level 31 MMOL/L (21-32) Anion Gap 5 mmol/L (5-15) Blood Urea Nitrogen 15 mg/dL (7-18) Creatinine 1.0 MG/DL (0.55-1.30) Estimat Glomerular Filtration Rate mL/min (>60) Glucose Level 117 MG/DL (74-106) H Calcium Level 8.9 MG/DL (8.5-10.1) Total Bilirubin 0.6 MG/DL (0.2-1.0) Aspartate Amino Transf (AST/SGOT) 39 U/L (15-37) H Alanine Aminotransferase (ALT/SGPT) 36 U/L (12-78) Alkaline Phosphatase 113 U/L (46-116) Pro-B-Type Natriuretic Peptide 464 pg/mL (0-125) H Total Protein 7.0 G/DL (6.4-8.2) Albumin 2.3 G/DL (3.4-5.0) L Globulin 4.7 g/dL Albumin/Globulin Ratio 0.5 (1.0-2.7) L Microbiology Date/Time Source Procedure Growth Status 02/23/19 20:00 Sputum Gram Stain - Final Resulted 02/23/19 20:00 Sputum Culture - Preliminary Gram Negative Bacillus 1 Usual Respiratory Ellie Resulted 02/23/19 14:30 Indwelling Cath Urine Culture - Final NO GROWTH AFTER 48 HOURS Complete Irving Majano MD Feb 26, 2019 10:46
[2019-02-26 12:00] VITALS: BP 152/89
[2019-02-26] MEDS ORDERED: NS 275ml ONE (14:43)
[2019-02-26] MEDS ORDERED: Tubing IV Secondary IV ONE (14:43)
[2019-02-26 16:00] VITALS: BP 152/81
--- NOTE | 2019-02-26 16:02 | Pulmonology Progress Note ---
Assessment/Plan Problems: (1) Sepsis (2) Nosocomial pneumonia (3) NSTEMI (non-ST elevated myocardial infarction) (4) Fever (5) Hypoxia (6) Diabetes mellitus (7) Feeding by G-tube (8) CAD (coronary artery disease) (9) Parkinson disease (10) Dementia with behavioral disturbance Assessment/Plan got one dose of lasix afebrile wbc decreasing all cultures reviewed, negative so far continue abx Echo reviewed, difficult study but LV is normal check cxr in am titrate bipap to fio2 of 92% tolerating feeding Pt is very appropriate for DNR and DNI, family not realistic. Subjective ROS Limited/Unobtainable: Yes Interval Events: on Nasal cannula Allergies: Coded Allergies: No Known Allergies (Unverified , 02/22/19) Objective Last 24 Hour Vital Signs Date Time Temp Pulse Resp B/P (MAP) Pulse Ox O2 Delivery O2 Flow Rate FiO2 02/26/19 12:00 84 02/26/19 12:00 2.0 02/26/19 12:00 99.0 83 21 152/89 (110) 99 02/26/19 11:59 Nasal Cannula 2.0 02/26/19 09:38 92 144/88 02/26/19 08:45 2.0 02/26/19 08:33 Nasal Cannula 2.0 02/26/19 08:00 98.2 92 22 144/88 (106) 98 02/26/19 07:43 90 02/26/19 07:06 98 Nasal Cannula 2.0 28 02/26/19 04:00 99.6 104 20 159/93 (115) 97 02/26/19 04:00 Bi-pap 02/26/19 04:00 2.0 02/26/19 03:40 106 02/26/19 00:35 106 20 100 Nasal Cannula 2.0 28 103 20 99 02/26/19 00:00 98.7 105 20 158/94 (115) 99 02/26/19 00:00 2.0 02/26/19 00:00 Bi-pap 02/26/19 00:00 106 02/25/19 20:00 98.1 112 20 152/75 (100) 100 02/25/19 20:00 Bi-pap 02/25/19 20:00 2.0 02/25/19 19:39 90 24 100 Nasal Cannula 2.0 28 88 22 100 02/25/19 19:39 98 Nasal Cannula 2.0 28 02/25/19 19:33 104 02/25/19 19:02 144/85 (104) 02/25/19 17:56 161/88 Intake and Output 02/25/19 02/26/19 19:00 07:00 Intake Total 795.0 ml 540 ml Output Total 550 ml 800 ml Balance 245.0 ml -260 ml Intake Free Water 50 ml 100 ml IV Total 385.0 ml 110 ml Tube Feeding 360 ml 330 ml Output Urine Total 550 ml 800 ml # Bowel Movements 3 General Appearance: WD/WN HEENT: normocephalic, atraumatic Respiratory/Chest: chest wall non-tender, accessory muscle use, crackles/rales Cardiovascular: normal peripheral pulses, normal rate, regular rhythm Abdomen: normal bowel sounds, soft, non tender Genitourinary: normal external genitalia Extremities: no cyanosis Neurologic/Psychiatric: sensory deficit, aphasia Lymphatic: no neck adenopathy Microbiology Date/Time Source Procedure Growth Status 02/23/19 20:00 Sputum Gram Stain - Final Resulted 02/23/19 20:00 Sputum Culture - Preliminary Gram Negative Bacillus 1 Usual Respiratory Ellie Resulted Laboratory Tests 02/26/19 03:48: White Blood Count 5.9, Red Blood Count 3.78L, Hemoglobin 12.5, Hematocrit 36.9L , Mean Corpuscular Volume 98, Mean Corpuscular Hemoglobin 33.2H, Mean Corpuscular Hemoglobin Concent 33.9, Red Cell Distribution Width 13.3, Platelet Count 178, Mean Platelet Volume 9.0, Neutrophils (%) (Auto) 63.6, Lymphocytes (% ) (Auto) 22.7, Monocytes (%) (Auto) 12.0H, Eosinophils (%) (Auto) 0.8, Basophils (%) (Auto) 1.0, Sodium Level 144, Potassium Level 3.3L, Chloride Level 108H, Carbon Dioxide Level 31, Anion Gap 5, Blood Urea Nitrogen 15, Creatinine 1.0, Estimat Glomerular Filtration Rate , Glucose Level 117H, Calcium Level 8.9, Total Bilirubin 0.6, Aspartate Amino Transf (AST/SGOT) 39H, Alanine Aminotransferase (ALT/SGPT) 36, Alkaline Phosphatase 113, Pro-B-Type Natriuretic Peptide 464H, Total Protein 7.0, Albumin 2.3L, Globulin 4.7, Albumin /Globulin Ratio 0.5L Current Medications Medications (Trade) Dose Ordered Sig/Steve Route PRN Reason Start Time Stop Time Status Last Admin Dose Admin Acetaminophen (Tylenol) 650 mg Q4H PRN NG Fever, Temp > 100.5 02/22/19 21:00 03/24/19 20:59 02/23/19 04:25 Acetaminophen (Tylenol) 650 mg Q4H PRN ORAL fever 02/22/19 21:00 03/24/19 20:59 Albuterol/ Ipratropium (Albuterol/ Ipratropium) 3 ml Q4H PRN HHN Shortness of Breath 02/22/19 21:00 02/27/19 20:59 02/26/19 00:34 Amlodipine Besylate (Norvasc) 2.5 mg DAILY GT 02/23/19 09:00 03/25/19 08:59 02/26/19 09:38 Apixaban (Eliquis) 5 mg Q12HR ORAL 02/22/19 21:00 03/24/19 20:59 02/26/19 09:38 Cefepime HCl 1 gm/ Dextrose 110 ml @ 220 mls/hr EVERY 12 HOURS IVPB 02/22/19 21:00 03/01/19 20:59 02/26/19 09:42 Hydralazine HCl (Apresoline) 10 mg Q4H PRN IV sbp>160 02/22/19 21:00 03/24/19 20:59 02/25/19 17:56 Insulin Aspart (NovoLOG) EVERY 6 HOURS SUBQ 02/23/19 06:00 03/24/19 11:29 02/24/19 00:44 Labetalol HCl (Normodyne) 10 mg Q6H PRN IV For High Blood Pressure 02/22/19 15:45 03/24/19 15:44 02/22/19 16:15 Morphine Sulfate (Morphine Sulfate) 2 mg Q4H PRN IVP Moderate Pain (Pain Scale 4-6) 02/22/19 21:00 03/01/19 20:59 Nitroglycerin (Ntg) 0.4 mg PRN PRN SL Prn Chest Pain, 5 MIN 02/22/19 21:00 03/24/19 20:59 Ondansetron HCl (Zofran) 4 mg Q6H PRN IVP Nausea & Vomiting 02/22/19 21:00 03/24/19 20:59 Pantoprazole (Protonix) 40 mg DAILY IVP 02/23/19 10:00 03/25/19 09:59 02/26/19 09:37 Polyethylene Glycol (Miralax) 17 gm DAILYPRN PRN ORAL Constipation 02/22/19 21:00 03/24/19 20:59 Temazepam (Restoril) 15 mg HSPRN PRN ORAL Insomnia 02/22/19 21:00 03/01/19 20:59 Davion Cuello MD Feb 26, 2019 16:02
--- NOTE | 2019-02-26 16:42 | Diagnostic Imaging Report ---
EXAM: XR Chest, 1 View CLINICAL HISTORY: DYSPNEA TECHNIQUE: Frontal view of the chest. COMPARISON: Chest x-rays dated 02/25/19 FINDINGS: Lungs: Mild perihilar increased interstitial markings with peribronchial wall thickening. No new focal consolidation. Pleural space: Small layering left pleural effusion. Heart: Unremarkable. No cardiomegaly. Mediastinum: Unremarkable. Bones/joints: Unremarkable. Tubes, lines and devices: Telemetry leads overlie the thorax. IMPRESSION: No significant interval change from the prior chest x-ray.
[2019-02-26 20:00] VITALS: BP 155/86
[2019-02-27] VITALS: BP 159/89
[2019-02-27 04:00] VITALS: BP 156/76
[2019-02-27] MEDS: NovoLOG Insulin Flexpen SUBQ SCH ×3 (06:00→17:14)
[2019-02-27 08:00] VITALS: BP 171/92
[2019-02-27] MEDS: Pantoprazole Inj IVP SCH (08:35)
[2019-02-27] MEDS: Cefepime HCl 1 GM in D5W 110 ML IVPB SCH ×2 (08:35→20:54)
[2019-02-27] MEDS: Eliquis 5mg tablet ORAL SCH ×2 (08:36→20:52)
[2019-02-27] MEDS: Albuterol/Ipratropium 3ml neb HHN PRN (09:44)
[2019-02-27 12:00] VITALS: BP 133/79
[2019-02-27] MEDS ORDERED: NS 275ml ONE (15:28)
--- NOTE | 2019-02-27 15:39 | Pulmonology Progress Note ---
Assessment/Plan Problems: (1) Sepsis (2) Nosocomial pneumonia (3) NSTEMI (non-ST elevated myocardial infarction) (4) Fever (5) Hypoxia (6) Diabetes mellitus (7) Feeding by G-tube (8) CAD (coronary artery disease) (9) Parkinson disease (10) Dementia with behavioral disturbance Assessment/Plan looks more comfortable afebrile wbc decreasing all cultures reviewed, negative so far continue abx Echo reviewed, difficult study but LV is normal titrate bipap to fio2 of 92% tolerating feeding Pt is very appropriate for DNR and DNI, family not realistic. Subjective ROS Limited/Unobtainable: Yes Constitutional: Reports: no symptoms HEENT: Repors: no symptoms Allergies: Coded Allergies: No Known Allergies (Unverified , 02/22/19) Objective Last 24 Hour Vital Signs Date Time Temp Pulse Resp B/P (MAP) Pulse Ox O2 Delivery O2 Flow Rate FiO2 02/27/19 12:00 98.0 95 21 133/79 (97) 98 02/27/19 12:00 Nasal Cannula 2.0 02/27/19 12:00 2.0 02/27/19 11:49 87 02/27/19 09:45 92 20 99 Nasal Cannula 3.0 32 98 20 99 02/27/19 09:18 98 20 98 Nasal Cannula 3.0 32 02/27/19 09:16 98 Nasal Cannula 2.0 28 02/27/19 08:46 171/85 02/27/19 08:33 69 180/80 02/27/19 08:00 97.9 71 19 171/92 (118) 99 02/27/19 08:00 2.0 02/27/19 08:00 Nasal Cannula 2.0 02/27/19 07:49 71 02/27/19 04:00 2.0 02/27/19 04:00 98.1 79 18 156/76 (102) 99 02/27/19 04:00 Nasal Cannula 2.0 02/27/19 03:39 72 02/27/19 00:00 2.0 02/27/19 00:00 78 02/27/19 00:00 Nasal Cannula 2.0 02/27/19 00:00 98.2 89 20 159/89 (112) 99 02/26/19 21:00 97 Nasal Cannula 2.0 28 02/26/19 20:00 98.7 72 22 155/86 (109) 98 02/26/19 20:00 Nasal Cannula 2.0 02/26/19 20:00 2.0 02/26/19 20:00 66 02/26/19 16:00 84 02/26/19 16:00 99.0 74 20 152/81 (104) 99 02/26/19 16:00 2.0 02/26/19 16:00 Nasal Cannula 2.0 Intake and Output 02/26/19 02/27/19 19:00 07:00 Intake Total 70 ml 695 ml Output Total 1000 ml Balance -930 ml 695 ml Intake Free Water 70 ml IV Total 110 ml Tube Feeding 70 ml 515 ml Output Urine Total 1000 ml # Bowel Movements 1 1 General Appearance: no acute distress HEENT: normocephalic Respiratory/Chest: chest wall non-tender, crackles/rales, rhonchi Cardiovascular: normal peripheral pulses, normal rate Abdomen: normal bowel sounds, soft, non tender Genitourinary: normal external genitalia Extremities: no cyanosis Lymphatic: no neck adenopathy, no groin adenopathy Laboratory Tests 02/26/19 23:03: Vancomycin Level Trough 6.4 Current Medications Medications (Trade) Dose Ordered Sig/Steve Route PRN Reason Start Time Stop Time Status Last Admin Dose Admin Acetaminophen (Tylenol) 650 mg Q4H PRN NG Fever, Temp > 100.5 02/22/19 21:00 03/24/19 20:59 02/23/19 04:25 Acetaminophen (Tylenol) 650 mg Q4H PRN ORAL fever 02/22/19 21:00 03/24/19 20:59 Albuterol/ Ipratropium (Albuterol/ Ipratropium) 3 ml Q4H PRN HHN Shortness of Breath 02/22/19 21:00 02/27/19 20:59 02/27/19 09:44 Amlodipine Besylate (Norvasc) 2.5 mg DAILY GT 02/23/19 09:00 03/25/19 08:59 02/27/19 08:33 Apixaban (Eliquis) 5 mg Q12HR ORAL 02/22/19 21:00 03/24/19 20:59 02/26/19 20:52 Cefepime HCl 1 gm/ Dextrose 110 ml @ 220 mls/hr EVERY 12 HOURS IVPB 02/22/19 21:00 03/01/19 20:59 02/27/19 08:35 Hydralazine HCl (Apresoline) 10 mg Q4H PRN IV sbp>160 02/22/19 21:00 03/24/19 20:59 02/27/19 08:46 Insulin Aspart (NovoLOG) EVERY 6 HOURS SUBQ 02/23/19 06:00 03/24/19 11:29 02/24/19 00:44 Labetalol HCl (Normodyne) 10 mg Q6H PRN IV For High Blood Pressure 02/22/19 15:45 03/24/19 15:44 02/22/19 16:15 Morphine Sulfate (Morphine Sulfate) 2 mg Q4H PRN IVP Moderate Pain (Pain Scale 4-6) 02/22/19 21:00 03/01/19 20:59 Nitroglycerin (Ntg) 0.4 mg PRN PRN SL Prn Chest Pain, 5 MIN 02/22/19 21:00 03/24/19 20:59 Ondansetron HCl (Zofran) 4 mg Q6H PRN IVP Nausea & Vomiting 02/22/19 21:00 03/24/19 20:59 Pantoprazole (Protonix) 40 mg DAILY IVP 02/23/19 10:00 03/25/19 09:59 02/27/19 08:35 Polyethylene Glycol (Miralax) 17 gm DAILYPRN PRN ORAL Constipation 02/22/19 21:00 03/24/19 20:59 Temazepam (Restoril) 15 mg HSPRN PRN ORAL Insomnia 02/22/19 21:00 03/01/19 20:59 Davion Cuello MD Feb 27, 2019 15:39
--- NOTE | 2019-02-27 15:48 | Cardiology Progress Note ---
Assessment/Plan Assessment/Plan pneumoni htn dementia chronic anticoag for chronic dvt dm abn trop demand related wbc is better fever subsided trop no peak no narcisa to suggest acs continue abx and pulm toilette tele sinus pers reviewed 02/27 await final echo i am unable to down load the study to review personally bp seems fien not febrile and sturating adequately Subjective ROS Limited/Unobtainable: Yes Objective Last 24 Hour Vital Signs Date Time Temp Pulse Resp B/P (MAP) Pulse Ox O2 Delivery O2 Flow Rate FiO2 02/27/19 12:00 98.0 95 21 133/79 (97) 98 02/27/19 12:00 Nasal Cannula 2.0 02/27/19 12:00 2.0 02/27/19 11:49 87 02/27/19 09:45 92 20 99 Nasal Cannula 3.0 32 98 20 99 02/27/19 09:18 98 20 98 Nasal Cannula 3.0 32 02/27/19 09:16 98 Nasal Cannula 2.0 28 02/27/19 08:46 171/85 02/27/19 08:33 69 180/80 02/27/19 08:00 97.9 71 19 171/92 (118) 99 02/27/19 08:00 2.0 02/27/19 08:00 Nasal Cannula 2.0 02/27/19 07:49 71 02/27/19 04:00 2.0 02/27/19 04:00 98.1 79 18 156/76 (102) 99 02/27/19 04:00 Nasal Cannula 2.0 02/27/19 03:39 72 02/27/19 00:00 2.0 02/27/19 00:00 78 02/27/19 00:00 Nasal Cannula 2.0 02/27/19 00:00 98.2 89 20 159/89 (112) 99 02/26/19 21:00 97 Nasal Cannula 2.0 28 02/26/19 20:00 98.7 72 22 155/86 (109) 98 02/26/19 20:00 Nasal Cannula 2.0 02/26/19 20:00 2.0 02/26/19 20:00 66 02/26/19 16:00 84 02/26/19 16:00 99.0 74 20 152/81 (104) 99 02/26/19 16:00 2.0 02/26/19 16:00 Nasal Cannula 2.0 General Appearance: no apparent distress, alert Cardiovascular: normal rate Respiratory/Chest: other - some upper airway noised Abdomen: non tender, soft, distended Extremities: no swelling Intake and Output 02/26/19 02/27/19 19:00 07:00 Intake Total 70 ml 695 ml Output Total 1000 ml Balance -930 ml 695 ml Intake Free Water 70 ml IV Total 110 ml Tube Feeding 70 ml 515 ml Output Urine Total 1000 ml # Bowel Movements 1 1 Laboratory Tests Test 02/26/19 23:03 Vancomycin Level Trough 6.4 ug/mL (5.0-12.0) Irving Majano MD Feb 27, 2019 15:48
[2019-02-27 16:00] VITALS: BP 148/83
[2019-02-27 20:00] VITALS: BP 160/90
[2019-02-28] VITALS: BP 135/95
[2019-02-28 04:00] VITALS: BP 163/89
[2019-02-28] MEDS: NovoLOG Insulin Flexpen SUBQ SCH ×4 (06:00→19:10)
[2019-02-28 08:00] VITALS: BP 148/86
[2019-02-28] MEDS: Cefepime HCl 1 GM in D5W 110 ML IVPB SCH ×2 (08:14→21:37)
[2019-02-28] MEDS: Pantoprazole Inj IVP SCH (08:14)
[2019-02-28] MEDS: Eliquis 5mg tablet ORAL SCH (08:14)
--- NOTE | 2019-02-28 10:25 | Infectious Diseases Prog Note ---
Assessment/Plan Assessment/Plan 83 yo bed bound female with PMHx of DM, CAD, Parkinsons CHF, Dementia, S/P G tube who was brought to the ED on 02/22/19 after being found hypoxic. Probable PNA vs Pulm Edema CXR - B/L Infiltrates Sp Cx GNR and NF Leukocytosis Fever Respiratory failure DM CAD Parkinsons CHF Dementia S/P G tube PLAN: - Continue Cefepime #6/7 ( End date 03/02/19) - 02/26/19 SP Vancomycin #4 - f/u cultures - Resp care - Monitor CBC and Temps Thank you for this consult. [facility] will continue to follow the patient with you during this hospitalization. Subjective Allergies: Coded Allergies: No Known Allergies (Unverified , 02/22/19) Subjective Aferbike On 2L NC No Leukocytosis Objective Vital Signs Last 24 Hour Vital Signs Date Time Temp Pulse Resp B/P (MAP) Pulse Ox O2 Delivery O2 Flow Rate FiO2 02/28/19 08:14 82 148/86 02/28/19 08:00 Nasal Cannula 2.0 02/28/19 08:00 97.3 82 21 148/86 (106) 99 02/28/19 08:00 2.0 02/28/19 07:37 93 02/28/19 07:20 99 Nasal Cannula 2.0 28 02/28/19 04:00 78 02/28/19 04:00 2.0 02/28/19 04:00 96.8 99 24 163/89 (113) 94 02/28/19 04:00 Nasal Cannula 2.0 02/28/19 00:00 71 02/28/19 00:00 2.0 02/28/19 00:00 Nasal Cannula 2.0 02/28/19 00:00 98.2 77 23 135/95 (108) 100 02/27/19 20:00 99.2 82 25 160/90 (113) 100 02/27/19 20:00 Nasal Cannula 2.0 02/27/19 20:00 76 02/27/19 18:45 100 Nasal Cannula 2.0 28 02/27/19 16:00 2.0 02/27/19 16:00 99.0 85 24 148/83 (104) 99 02/27/19 16:00 Nasal Cannula 2.0 02/27/19 15:39 85 02/27/19 12:00 98.0 95 21 133/79 (97) 98 02/27/19 12:00 Nasal Cannula 2.0 02/27/19 12:00 2.0 02/27/19 11:49 87 Height (Feet): 5 Height (Inches): 3.00 Weight (Pounds): 154 Objective Gen: NAD 2L NC, Satting well HEENT: NCAT, MMM, EOMI, PERRL LUNGS: Coarse B/L with crackles CARDS: RRR, S1, S2 ABD: Soft, ND Current Medications Medications (Trade) Dose Ordered Sig/Steve Route PRN Reason Start Time Stop Time Status Last Admin Dose Admin Acetaminophen (Tylenol) 650 mg Q4H PRN NG Fever, Temp > 100.5 02/22/19 21:00 03/24/19 20:59 02/23/19 04:25 Acetaminophen (Tylenol) 650 mg Q4H PRN ORAL fever 02/22/19 21:00 03/24/19 20:59 Amlodipine Besylate (Norvasc) 2.5 mg DAILY GT 02/23/19 09:00 03/25/19 08:59 02/28/19 08:14 Apixaban (Eliquis) 5 mg Q12HR ORAL 02/22/19 21:00 03/24/19 20:59 02/28/19 08:14 Cefepime HCl 1 gm/ Dextrose 110 ml @ 220 mls/hr EVERY 12 HOURS IVPB 02/22/19 21:00 03/01/19 20:59 02/28/19 08:14 Hydralazine HCl (Apresoline) 10 mg Q4H PRN IV sbp>160 02/22/19 21:00 03/24/19 20:59 02/27/19 08:46 Insulin Aspart (NovoLOG) EVERY 6 HOURS SUBQ 02/23/19 06:00 03/24/19 11:29 02/24/19 00:44 Labetalol HCl (Normodyne) 10 mg Q6H PRN IV For High Blood Pressure 02/22/19 15:45 03/24/19 15:44 02/22/19 16:15 Morphine Sulfate (Morphine Sulfate) 2 mg Q4H PRN IVP Moderate Pain (Pain Scale 4-6) 02/22/19 21:00 03/01/19 20:59 Nitroglycerin (Ntg) 0.4 mg PRN PRN SL Prn Chest Pain, 5 MIN 02/22/19 21:00 03/24/19 20:59 Ondansetron HCl (Zofran) 4 mg Q6H PRN IVP Nausea & Vomiting 02/22/19 21:00 03/24/19 20:59 Pantoprazole (Protonix) 40 mg DAILY IVP 02/23/19 10:00 03/25/19 09:59 02/28/19 08:14 Polyethylene Glycol (Miralax) 17 gm DAILYPRN PRN ORAL Constipation 02/22/19 21:00 03/24/19 20:59 Temazepam (Restoril) 15 mg HSPRN PRN ORAL Insomnia 02/22/19 21:00 03/01/19 20:59 Edwin Lambert MD Feb 28, 2019 10:25
--- NOTE | 2019-02-28 11:33 | Pulmonology Progress Note ---
Assessment/Plan Problems: (1) Sepsis (2) Nosocomial pneumonia (3) NSTEMI (non-ST elevated myocardial infarction) (4) Fever (5) Hypoxia (6) Diabetes mellitus (7) Feeding by G-tube (8) CAD (coronary artery disease) (9) Parkinson disease (10) Dementia with behavioral disturbance Assessment/Plan looks more comfortable afebrile wbc decreasing, all cultures reviewed, negative so far continue abx Echo reviewed, difficult study but LV is normal titrate bipap to fio2 of 92% tolerating feeding med/surg dc planning soon Subjective ROS Limited/Unobtainable: Yes Allergies: Coded Allergies: No Known Allergies (Unverified , 02/22/19) Objective Last 24 Hour Vital Signs Date Time Temp Pulse Resp B/P (MAP) Pulse Ox O2 Delivery O2 Flow Rate FiO2 02/28/19 08:14 82 148/86 02/28/19 08:00 Nasal Cannula 2.0 02/28/19 08:00 97.3 82 21 148/86 (106) 99 02/28/19 08:00 2.0 02/28/19 07:37 93 02/28/19 07:20 99 Nasal Cannula 2.0 28 02/28/19 04:00 78 02/28/19 04:00 2.0 02/28/19 04:00 96.8 99 24 163/89 (113) 94 02/28/19 04:00 Nasal Cannula 2.0 02/28/19 00:00 71 02/28/19 00:00 2.0 02/28/19 00:00 Nasal Cannula 2.0 02/28/19 00:00 98.2 77 23 135/95 (108) 100 02/27/19 20:00 99.2 82 25 160/90 (113) 100 02/27/19 20:00 Nasal Cannula 2.0 02/27/19 20:00 76 02/27/19 18:45 100 Nasal Cannula 2.0 28 02/27/19 16:00 2.0 02/27/19 16:00 99.0 85 24 148/83 (104) 99 02/27/19 16:00 Nasal Cannula 2.0 02/27/19 15:39 85 02/27/19 12:00 98.0 95 21 133/79 (97) 98 02/27/19 12:00 Nasal Cannula 2.0 02/27/19 12:00 2.0 02/27/19 11:49 87 Intake and Output 02/27/19 02/28/19 19:00 07:00 Intake Total 900 ml 520 ml Output Total 520 ml 700 ml Balance 380 ml -180 ml Intake Free Water 80 ml 20 ml IV Total 220 ml Tube Feeding 600 ml 500 ml Output Urine Total 520 ml 700 ml # Bowel Movements 1 General Appearance: WD/WN HEENT: normocephalic, atraumatic Respiratory/Chest: chest wall non-tender Breasts: no masses Cardiovascular: normal peripheral pulses Abdomen: normal bowel sounds, soft, non tender Genitourinary: normal external genitalia Skin: no rash Current Medications Medications (Trade) Dose Ordered Sig/Steve Route PRN Reason Start Time Stop Time Status Last Admin Dose Admin Acetaminophen (Tylenol) 650 mg Q4H PRN NG Fever, Temp > 100.5 02/22/19 21:00 03/24/19 20:59 02/23/19 04:25 Acetaminophen (Tylenol) 650 mg Q4H PRN ORAL fever 02/22/19 21:00 03/24/19 20:59 Amlodipine Besylate (Norvasc) 2.5 mg DAILY GT 02/23/19 09:00 03/25/19 08:59 02/28/19 08:14 Apixaban (Eliquis) 5 mg Q12HR ORAL 02/22/19 21:00 03/24/19 20:59 02/28/19 08:14 Cefepime HCl 1 gm/ Dextrose 110 ml @ 220 mls/hr EVERY 12 HOURS IVPB 02/22/19 21:00 03/02/19 23:59 02/28/19 08:14 Hydralazine HCl (Apresoline) 10 mg Q4H PRN IV sbp>160 02/22/19 21:00 03/24/19 20:59 02/27/19 08:46 Insulin Aspart (NovoLOG) EVERY 6 HOURS SUBQ 02/23/19 06:00 03/24/19 11:29 02/24/19 00:44 Labetalol HCl (Normodyne) 10 mg Q6H PRN IV For High Blood Pressure 02/22/19 15:45 03/24/19 15:44 02/22/19 16:15 Morphine Sulfate (Morphine Sulfate) 2 mg Q4H PRN IVP Moderate Pain (Pain Scale 4-6) 02/22/19 21:00 03/01/19 20:59 Nitroglycerin (Ntg) 0.4 mg PRN PRN SL Prn Chest Pain, 5 MIN 02/22/19 21:00 03/24/19 20:59 Ondansetron HCl (Zofran) 4 mg Q6H PRN IVP Nausea & Vomiting 02/22/19 21:00 03/24/19 20:59 Pantoprazole (Protonix) 40 mg DAILY IVP 02/23/19 10:00 03/25/19 09:59 02/28/19 08:14 Polyethylene Glycol (Miralax) 17 gm DAILYPRN PRN ORAL Constipation 02/22/19 21:00 03/24/19 20:59 Temazepam (Restoril) 15 mg HSPRN PRN ORAL Insomnia 02/22/19 21:00 03/01/19 20:59 Davion Cuello MD Feb 28, 2019 11:33
[2019-02-28 12:00] VITALS: BP_SYST 156; BP_SYST 162; BP_DIAS 80; BP_DIAS 84
[2019-02-28 13:17] LABS: BASOPHILS % (AUTO) 0.6 % (0.0-2.0); HEMATOCRIT 41.1 % (37.0-47.0); HEMOGLOBIN 13.6 G/DL (12.0-16.0); LYMPHOCYTES % (AUTO) 22.3 % (20.0-45.0); MEAN CORPUSCULAR VOLUME 99 FL (80-99); MONOCYTES % (AUTO) 8.9 % (1.0-10.0); PLATELET COUNT 179 K/UL (150-450); RED BLOOD COUNT 4.16 M/UL (4.20-5.40); RED CELL DISTRIBUTION WIDTH 13.2 % (11.6-14.8); WHITE BLOOD COUNT 5.9 K/UL (4.8-10.8)
[2019-02-28 13:26] LABS: ALANINE AMINOTRANSFERASE 36 U/L (12-78); ALBUMIN 2.4 G/DL (3.4-5.0); ALBUMIN/GLOBULIN RATIO 0.5 (1.0-2.7); ALKALINE PHOSPHATASE 125 U/L (46-116); ANION GAP 4 mmol/L (5-15); ASPARTATE AMINO TRANSFERASE 32 U/L (15-37); BILIRUBIN,TOTAL 0.5 MG/DL (0.2-1.0); BLOOD UREA NITROGEN 14 mg/dL (7-18); CALCIUM 9.8 MG/DL (8.5-10.1); CARBON DIOXIDE 31 MMOL/L (21-32); CHLORIDE 106 MMOL/L (98-107); PHOSPHORUS 1.9 MG/DL (2.5-4.9); SODIUM 141 MMOL/L (136-145)
[2019-02-28 16:00] VITALS: BP 143/88
[2019-02-28] MEDS ORDERED: Morphine Sulfate 2mg/ml Inj(IV/IM USE ONLY) IVP PRN (17:06)
[2019-02-28] MEDS ORDERED: Nitroglycerin Subl 0.4mg tab SL PRN (17:06)
[2019-02-28] MEDS ORDERED: Acetaminophen 650mg/20.3ml GT PRN (17:06)
[2019-02-28] MEDS ORDERED: Miralax 17gm pkt GT PRN (17:07)
[2019-02-28 20:00] VITALS: BP 187/90
[2019-02-28] MEDS: Eliquis 5mg tablet GT SCH (21:37)
[2019-02-28] MEDS ORDERED: Labetalol 5mg/ml 20ml vial IV PRN (21:45)
[2019-03-01] VITALS (7 sets, daily range): BP systolic 144–173; BP diastolic 74–94
[2019-03-01] MEDS ORDERED: NovoLOG Insulin Flexpen SUBQ SCH
[2019-03-01] MEDS: NovoLOG Insulin Flexpen SUBQ SCH ×4 (00:51→17:33)
[2019-03-01] MEDS ORDERED: Pantoprazole Inj IVP SCH (09:00)
[2019-03-01] MEDS: Eliquis 5mg tablet GT SCH ×2 (09:01→20:04)
[2019-03-01] MEDS: Cefepime HCl 1 GM in D5W 110 ML IVPB SCH ×2 (09:02→20:04)
--- NOTE | 2019-03-01 11:32 | Pulmonology Progress Note ---
Assessment/Plan Problems: (1) Sepsis (2) Nosocomial pneumonia (3) NSTEMI (non-ST elevated myocardial infarction) (4) Fever (5) Hypoxia (6) Diabetes mellitus (7) Feeding by G-tube (8) CAD (coronary artery disease) (9) Parkinson disease (10) Dementia with behavioral disturbance Assessment/Plan looks more comfortable again afebrile wbc decreasing, all cultures reviewed, negative so far continue abx, finishing today Echo reviewed, difficult study but LV is normal tolerating feeding med/surg dc planning for today Subjective ROS Limited/Unobtainable: Yes Allergies: Coded Allergies: No Known Allergies (Unverified , 02/22/19) Objective Last 24 Hour Vital Signs Date Time Temp Pulse Resp B/P (MAP) Pulse Ox O2 Delivery O2 Flow Rate FiO2 03/01/19 09:01 81 145/92 03/01/19 09:00 Nasal Cannula 2.0 03/01/19 08:00 98.9 81 19 145/92 (109) 97 03/01/19 08:00 2.0 03/01/19 07:56 66 16 99 Nasal Cannula 2.0 28 03/01/19 07:56 99 Nasal Cannula 2.0 28 03/01/19 07:01 162/95 03/01/19 04:00 2.0 03/01/19 04:00 99.2 84 16 173/84 (113) 98 03/01/19 00:00 2.0 03/01/19 00:00 97.0 97 20 157/90 (112) 98 02/28/19 20:00 Nasal Cannula 2.0 02/28/19 20:00 2.0 02/28/19 20:00 97.3 78 18 187/90 (122) 100 02/28/19 19:12 99 Nasal Cannula 2.0 28 02/28/19 16:00 Nasal Cannula 2.0 02/28/19 16:00 98.2 88 18 143/88 (106) 98 02/28/19 16:00 2.0 02/28/19 12:02 84 02/28/19 12:00 97.9 95 20 156/84 (108) 97 02/28/19 12:00 2.0 02/28/19 12:00 Nasal Cannula 2.0 Intake and Output 02/28/19 03/01/19 19:00 07:00 Intake Total 590 ml 860 ml Output Total 650 ml 400 ml Balance -60 ml 460 ml Intake Free Water 40 ml 200 ml Tube Feeding 550 ml 660 ml Output Urine Total 650 ml 400 ml General Appearance: WD/WN HEENT: normocephalic, atraumatic Respiratory/Chest: chest wall non-tender, lungs clear Breasts: no masses Cardiovascular: normal peripheral pulses Abdomen: normal bowel sounds, soft, non tender Skin: no rash Neurologic/Psychiatric: [employer] II-XII grossly normal Lymphatic: no neck adenopathy Laboratory Tests 02/28/19 12:05: White Blood Count 5.9, Red Blood Count 4.16L, Hemoglobin 13.6, Hematocrit 41.1, Mean Corpuscular Volume 99, Mean Corpuscular Hemoglobin 32.6H, Mean Corpuscular Hemoglobin Concent 33.0, Red Cell Distribution Width 13.2, Platelet Count 179, Mean Platelet Volume 8.1, Neutrophils (%) (Auto) 63.0, Lymphocytes (%) (Auto) 22.3, Monocytes (%) (Auto) 8.9, Eosinophils (%) (Auto) 5.0H, Basophils (%) (Auto ) 0.6, Sodium Level 141, Potassium Level 4.0, Chloride Level 106, Carbon Dioxide Level 31, Anion Gap 4L, Blood Urea Nitrogen 14, Creatinine 1.0, Estimat Glomerular Filtration Rate , Glucose Level 116H, Calcium Level 9.8, Phosphorus Level 1.9L, Magnesium Level 1.9, Total Bilirubin 0.5, Aspartate Amino Transf ( AST/SGOT) 32, Alanine Aminotransferase (ALT/SGPT) 36, Alkaline Phosphatase 125H , Total Protein 7.6, Albumin 2.4L, Globulin 5.2, Albumin/Globulin Ratio 0.5L Current Medications Medications (Trade) Dose Ordered Sig/Steve Route PRN Reason Start Time Stop Time Status Last Admin Dose Admin Acetaminophen (Tylenol) 650 mg Q4H PRN GT Fever, Temp > 100.5 02/28/19 17:06 03/30/19 17:05 Amlodipine Besylate (Norvasc) 2.5 mg DAILY GT 03/01/19 09:00 03/25/19 08:59 03/01/19 09:01 Apixaban (Eliquis) 5 mg Q12HR GT 02/28/19 21:00 03/24/19 20:59 03/01/19 09:01 Cefepime HCl 1 gm/ Dextrose 110 ml @ 220 mls/hr EVERY 12 HOURS IVPB 02/28/19 21:00 03/02/19 23:59 03/01/19 09:02 Clonidine HCl (Catapres Tab) 0.1 mg Q6H PRN GT For High Blood Pressure 03/01/19 07:00 03/31/19 06:59 03/01/19 07:01 Insulin Aspart (NovoLOG) EVERY 6 HOURS SUBQ 02/28/19 19:10 03/30/19 19:09 03/01/19 06:44 Morphine Sulfate (Morphine Sulfate) 2 mg Q4H PRN IVP Moderate Pain (Pain Scale 4-6) 02/28/19 17:06 03/07/19 17:05 Nitroglycerin (Ntg) 0.4 mg PRN PRN SL Prn Chest Pain, 5 MIN 02/28/19 17:06 03/30/19 17:05 Ondansetron HCl (Zofran) 4 mg Q6H PRN IVP Nausea & Vomiting 02/28/19 17:06 03/30/19 17:05 Pantoprazole (Protonix) 40 mg DAILY IVP 03/01/19 09:00 03/25/19 09:59 03/01/19 09:01 Polyethylene Glycol (Miralax) 17 gm DAILYPRN PRN GT Constipation 02/28/19 17:07 03/30/19 17:06 Temazepam (Restoril) 15 mg HSPRN PRN GT Insomnia 02/28/19 21:00 03/01/19 20:59 Davion Cuello MD Mar 01, 2019 11:32
--- NOTE | 2019-03-01 12:09 | Infectious Diseases Prog Note ---
Assessment/Plan Assessment/Plan 83 yo bed bound female with PMHx of DM, CAD, Parkinsons CHF, Dementia, S/P G tube who was brought to the ED on 02/22/19 after being found hypoxic. Probable PNA vs Pulm Edema CXR - B/L Infiltrates Sp Cx GNR and NF Leukocytosis Fever Respiratory failure DM CAD Parkinsons CHF Dementia S/P G tube PLAN: - Continue Cefepime #7/ ( End date 03/02/19) - 02/26/19 SP Vancomycin #4 - f/u cultures - Resp care - Monitor CBC and Temps Thank you for this consult. [facility] will continue to follow the patient with you during this hospitalization. Subjective Allergies: Coded Allergies: No Known Allergies (Unverified , 02/22/19) Subjective Aferbike No Leukocytosis Objective Vital Signs Last 24 Hour Vital Signs Date Time Temp Pulse Resp B/P (MAP) Pulse Ox O2 Delivery O2 Flow Rate FiO2 03/01/19 09:01 81 145/92 03/01/19 09:00 Nasal Cannula 2.0 03/01/19 08:00 98.9 81 19 145/92 (109) 97 03/01/19 08:00 2.0 03/01/19 07:56 66 16 99 Nasal Cannula 2.0 28 03/01/19 07:56 99 Nasal Cannula 2.0 28 03/01/19 07:01 162/95 03/01/19 04:00 2.0 03/01/19 04:00 99.2 84 16 173/84 (113) 98 03/01/19 00:00 2.0 03/01/19 00:00 97.0 97 20 157/90 (112) 98 02/28/19 20:00 Nasal Cannula 2.0 02/28/19 20:00 2.0 02/28/19 20:00 97.3 78 18 187/90 (122) 100 02/28/19 19:12 99 Nasal Cannula 2.0 28 02/28/19 16:00 Nasal Cannula 2.0 02/28/19 16:00 98.2 88 18 143/88 (106) 98 02/28/19 16:00 2.0 Height (Feet): 5 Height (Inches): 3.00 Weight (Pounds): 183 Objective Gen: NAD HEENT: NCAT, MMM, EOMI, PERRL LUNGS: Coarse B/L with crackles CARDS: RRR, S1, S2 ABD: Soft, ND Current Medications Medications (Trade) Dose Ordered Sig/Steve Route PRN Reason Start Time Stop Time Status Last Admin Dose Admin Acetaminophen (Tylenol) 650 mg Q4H PRN GT Fever, Temp > 100.5 02/28/19 17:06 03/30/19 17:05 Amlodipine Besylate (Norvasc) 2.5 mg DAILY GT 03/01/19 09:00 03/25/19 08:59 03/01/19 09:01 Apixaban (Eliquis) 5 mg Q12HR GT 02/28/19 21:00 03/24/19 20:59 03/01/19 09:01 Cefepime HCl 1 gm/ Dextrose 110 ml @ 220 mls/hr EVERY 12 HOURS IVPB 02/28/19 21:00 03/02/19 23:59 03/01/19 09:02 Clonidine HCl (Catapres Tab) 0.1 mg Q6H PRN GT For High Blood Pressure 03/01/19 07:00 03/31/19 06:59 03/01/19 07:01 Insulin Aspart (NovoLOG) EVERY 6 HOURS SUBQ 02/28/19 19:10 03/30/19 19:09 03/01/19 06:44 Morphine Sulfate (Morphine Sulfate) 2 mg Q4H PRN IVP Moderate Pain (Pain Scale 4-6) 02/28/19 17:06 03/07/19 17:05 Nitroglycerin (Ntg) 0.4 mg PRN PRN SL Prn Chest Pain, 5 MIN 02/28/19 17:06 03/30/19 17:05 Ondansetron HCl (Zofran) 4 mg Q6H PRN IVP Nausea & Vomiting 02/28/19 17:06 03/30/19 17:05 Pantoprazole (Protonix) 40 mg DAILY IVP 03/01/19 09:00 03/25/19 09:59 03/01/19 09:01 Polyethylene Glycol (Miralax) 17 gm DAILYPRN PRN GT Constipation 02/28/19 17:07 03/30/19 17:06 Temazepam (Restoril) 15 mg HSPRN PRN GT Insomnia 1/6/20 21:00 03/01/19 20:59 Edwin Lambert MD Mar 01, 2019 12:09
[2019-03-01] MEDS ORDERED: NS 275ml ONE (21:29)
--- NOTE | 2019-03-02 09:25 | Discharge Summary ---
Discharge Summary Discharge Summary _ DATE OF ADMISSION: 02/22/2019 DATE OF DISCHARGE: 03/01/2018 DISCHARGED BY: Dr. Cuello REASON FOR ADMISSION: [] 83 years old female with past medical history of diabetes mellitus, congestive heart failure, dementia, dysphagia, G-tube, bedbound, presented for evaluation due to hypoxia and shortness of breath. Patient was found hypoxic saturating 76% on room air and improved to 88% on nasal cannula. In emergency room patient was febrile with temperature 102.4, blood pressure was elevated 192/61. Patient was tachycardic. Patient was in respiratory distress and required placement on the BiPAP. ABG on the BiPAP was stable. Laboratory work-up revealed BUN 29, creatinine 1.2. Lactic acid 1.8. Troponin 0.132. Pro BNP 742 . EKG showed sinus tachycardia with left axis deviation, no acute ST changes. WBC 20.1, stable hemoglobin, hematocrit and platelet count. Urinalysis revealed no evidence of urinary tract infection , +3 protein , +4 blood. Chest x-ray demonstrated acuity indeterminate bilateral interstitial disease and central bronchial wall thickening. In emergency room patient received rectal Tylenol, started on empiric antibiotics . Influenza swab was negative. Patient subsequently admitted to stepdown unit for further management. CONSULTANTS: mascara molder Dr. Majano ID specialist Dr. Lambert [facility]RSE: Patient admitted to direct observational unit. Patient started on empiric antibiotics. Supplemental oxygen provided to keep pulse oximetry above 92%. Bronchodilator therapy via handheld nebulizing therapy provided. Serial troponin followed. Cardiology evaluation requested. Echocardiogram revealed preserved left ventricular ejection fraction. Normal left ventricular chamber size, systolic function and wall motion to the extent visualized. No evidence of left ventricular hypertrophy. Venous duplex bilateral lower extremity revealed recanalized chronic thrombus in the right lower extremity , superficial femoral to popliteal veins. Serial troponin with minimal troponin elevation. No peak , no narcisa to suggest acute coronary syndrome. Per mascara molder , abnormal troponin was likely demand related due to sepsis and pneumonia. Patient remained in sinus rhythm on telemetry. As patient clinically improved , patient was able to be weaned from the BiPAP to oxygen via nasal cannula. Pulse oximetry 99% prior to discharge on 2 L of oxygen via nasal cannula. Patient was followed-up with chest x-ray. Blood pressure was managed with calcium channel niko. Clonidine was on board as needed for blood pressure spikes. Blood sugar was managed with sliding scale of insulin. Nitroglycerin was on board as needed. GI prophylaxis provided. Anticoagulation with Eliquis continued. Pro BNP trended down from 742 to 464. Blood cultures were negative. Urine culture was negative. Sputum culture revealed Morganella. Patient was on antibiotic as per ID specialist recommendation. Fevers and leukocytosis resolved. Strict aspiration precautions were maintained. G-tube feeding continued. Patient clinically stabilized and was [facility] care. FINAL DIAGNOSES: Sepsis Morganella pneumonia Acute hypoxia likely due to pneumonia-improved Dysphagia, feeding by G-tube Elevated troponin likely demand related Diabetes mellitus Coronary artery disease Parkinson disease Dementia with behavioral disturbance DISCHARGE MEDICATIONS: See Medication Reconciliation list. DISCHARGE INSTRUCTIONS: [facility]. Follow up with medical doctor at the facility. I have been assigned to dictate discharge summary for this account. I was not involved in the patient's management. Kim Spencer NP Mar 02, 2019 09:25
--- NOTE | 2019-03-03 15:07 | Diagnostic Imaging Report ---
Indication: Shortness of breath Technique: One view of the chest Comparison: 02/22/2019 Findings: There is a left-sided pleural effusion, new since prior study. There is increased bilateral interstitial and airspace edema there is infiltrate. The heart size is normal. Impression: New or increased left pleural effusion. Increase in bilateral interstitial and airspace infiltrates versus edema, over 3 days
== END 2019-03-01 21:30 | DRG 871 ==
LOC: EDBD 04:25 → EMR 04:39 → ICU 05:00 → EDBEDREQ 06:10 → 2W 02-23 22:11 → 4E 02-28 18:00
PROC: 5A09557 Assistance with Respiratory Ventilation, Greater than 96 Consecutive Hours, Continuous Positive Airway Pressure (ICD-10-PCS; principal; 2019-02-22)
DX: A41.9 Sepsis, unspecified organism (principal); I21.4 Non-ST elevation (NSTEMI) myocardial infarction; J15.8 Pneumonia due to other specified bacteria; J96.01 Acute respiratory failure with hypoxia; F02.81 Dementia in other diseases classified elsewhere, unspecified severity, with behavioral disturbance; Z43.1 Encounter for attention to gastrostomy; I82.509 Chronic embolism and thrombosis of unspecified deep veins of unspecified lower extremity; G20 Parkinson's disease; Y95 Nosocomial condition; R13.10 Dysphagia, unspecified; I25.10 Atherosclerotic heart disease of native coronary artery without angina pectoris; E11.9 Type 2 diabetes mellitus without complications; Z79.01 Long term (current) use of anticoagulants
CPT/HCPCS: 36415; 36600; 71045; 80053; 80202; 81001; 81003; 82248; 82803; 82962; 83605; 83735; 83880; 84100; 84484; 85007; 85025; 86710; 87040; 87070; 87081; 87086; 87181; 87205; 93005; 93306; 93970; 94640; 94660; 94664; 96365; 99291; J1815; J7030; J7620